=== PATIENT | male | born 1975 | race Caucasian/White ===

== ENCOUNTER 2016-07-21 00:48 | Emergency (ER) | payer SELFPAY ==
[~2016-07-21] VITALS: Ht 152.4 cm; Wt 117.3 kg
[~2016-07-21 00:48] MED LIST: HYDR-4246 PO; LISI-621 PO; NAPR500T PO; PENI250T2 PO
--- OUTSIDE RECORDS SUMMARY | 2016-07-21 00:52 | XMS REPORT | Referral Summary ---
Author Author [facility] Organization [facility] Address Unknown Phone Unavailable Care Team Providers Care Jailer/Training Officer Name Role Phone [facility] Primary Care Physician Unavailable Encounter [facility] [id number] Date(s): 05/01/16 - 05/01/16 [facility] [address] [place], [place] [address] Discharge Diagnosis: Nausea vomiting and diarrhea Discharge Diagnosis: Dehydration Discharge Disposition: 01-Home or Self Care Attending Physician: Antwon Emery DO Admitting Physician: Thor Felipe DO Vital Signs Most recent to 1 oldest [Reference Range]: Temperature Oral 37.2 degC [35.8-37.3 degC] (05/01/16 2:13 PM) Peripheral Pulse 85 bpm Rate [60-100 bpm] (05/01/16 5:02 PM) Respiratory Rate 18 br/min [14-20 br/min] (05/01/16 12:47 PM) Blood Pressure 135/70 mmHg [90-140/60-90 mmHg] (05/01/16 5:02 PM) SpO2 96 % (05/01/16 12:47 PM) Problem List Condition Effective Dates Status Health Status Informant Chronic low back Active pain(Confirmed) Head ache(Confirmed) Active patient High blood Active patient pressure(Confirmed) Allergies, Adverse Reactions, Alerts Substance Reaction Severity Status Toradol nausea Active Ultram Active Medications cyclobenzaprine 10 mg oral tablet 10 mg 1 tabs, Oral, TID, as needed for spasm, # 10 tabs, 0 Refill(s), supervising deacon Start Date: 04/03/16 Stop Date: 04/03/17 Status: Ordered ibuprofen 800 mg oral tablet 800 mg 1 tabs, Oral, q8hr, # 10 tabs, 0 Refill(s) Start Date: 12/26/15 Status: Ordered lisinopril 10 mg oral tablet 10 mg 1 tabs, Oral, Daily, # 14 tabs, 0 Refill(s) Start Date: 05/06/15 Stop Date: 05/20/15 Status: Ordered Naprosyn 500 mg oral tablet 500 mg 1 tabs, Oral, q8hr, Pain, # 15 tabs, 0 Refill(s) Start Date: 12/06/14 Status: Ordered [place] 5 mg-325 mg oral tablet 1 tabs, Oral, q6hr, as needed for pain, # 12 tabs, 0 Refill(s) Start Date: 04/03/16 Stop Date: 04/03/17 Status: Ordered predniSONE 50 mg oral tablet 50 mg 1 tabs, Oral, Daily, # 3 tabs, 0 Refill(s) Start Date: 12/26/15 Stop Date: 12/29/15 Status: Ordered Zofran ODT 4 mg oral tablet, disintegrating 4 mg 1 tabs, Oral, q8hr, as needed for nausea/vomiting, # 12 tabs, 0 Refill(s) Start Date: 05/01/16 Stop Date: 05/05/16 Status: Ordered Results Hematology Most recent to 1 oldest [Reference Range]: WBC [4.8-10.8 7.3 10*3/uL 10*3/uL] (05/01/16 1:13 PM) RBC [4.60-6.20] 5.11 (05/01/16 1:13 PM) Hgb [14.0-18.0 14.9 gm/dL gm/dL] (05/01/16 1:13 PM) Hct [42.0-52.0 %] 44.5 % (05/01/16 1:13 PM) MCV [82.0-99.0 fL] 87.1 fL (05/01/16 1:13 PM) MCH [27.0-32.0 pg] 29.2 pg (05/01/16 1:13 PM) MCHC [32.0-36.0 33.5 gm/dL gm/dL] (05/01/16 1:13 PM) RDW [11.5-14.5 %] 14.0 % (05/01/16 1:13 PM) Platelet [150-400 176 10*3/uL 10*3/uL] (05/01/16 1:13 PM) MPV [9.4-12.3 fL] 9.1 fL *LOW* (05/01/16 1:13 PM) Immature 0.3 % Granulocytes (05/01/16 1:13 PM) [0.0-1.0 %] Neutrophils [51-75 84 % %] *HI* (05/01/16 1:13 PM) Lymphocytes [20-46 11 % %] *LOW* (05/01/16 1:13 PM) Monocytes [4-11 %] 4 % (05/01/16 1:13 PM) Eosinophils [0-4 %] 1 % (05/01/16 1:13 PM) Basophils [0-2 %] 0 % (05/01/16 1:13 PM) Neutro Absolute 6.07 [1.90-7.00] (05/01/16 1:13 PM) Lymph Absolute 0.81 [0.80-3.30] (05/01/16 1:13 PM) [place] Absolute 0.31 [0.30-1.00] (05/01/16 1:13 PM) Eos Absolute 0.04 [0.00-0.50] (05/01/16 1:13 PM) Baso Absolute 0.01 [0.00-0.20] (05/01/16 1:13 PM) Nucleated RBC 0.0 /100 WBC Automated [0 /100 (05/01/16 1:13 PM) WBC] Chemistry Most recent to 1 oldest [Reference Range]: Sodium Lvl [136-144 134 mEq/L mEq/L] *LOW* (05/01/16 1:13 PM) Potassium Lvl 3.5 mEq/L [3.6-5.1 mEq/L] *LOW* (05/01/16 1:13 PM) Chloride [99-109 103 mEq/L mEq/L] (05/01/16 1:13 PM) CO2 [22-32 mEq/L] 24 mEq/L (05/01/16 1:13 PM) AGAP [3-20] 7 (05/01/16 1:13 PM) BUN [4-20 mg/dL] 15 mg/dL (05/01/16 1:13 PM) Glucose Lvl [70-100 87 mg/dL mg/dL] (05/01/16 1:13 PM) Creatinine Lvl 1.45 mg/dL [0.64-1.27 mg/dL] *HI* (05/01/16 1:13 PM) eGFR [>60] 53 1 *ABN* (05/01/16 1:13 PM) Calcium Lvl 8.4 mg/dL [8.6-10.0 mg/dL] *LOW* (05/01/16 1:13 PM) Albumin Lvl [3.5-4.8 3.5 gm/dL gm/dL] (05/01/16 1:13 PM) Total Protein 6.7 gm/dL [6.1-7.9 gm/dL] (05/01/16 1:13 PM) Globulin [1.9-4.3 3.2 gm/dL gm/dL] (05/01/16 1:13 PM) ALT [17-63 U/L] 23 U/L (05/01/16 1:13 PM) AST [15-41 U/L] 23 U/L (05/01/16 1:13 PM) Alk Phos [26-104 56 U/L U/L] (05/01/16 1:13 PM) Bili Total [0.2-1.2 2.1 mg/dL 2 mg/dL] *HI* (05/01/16 1:13 PM) Creatinine Venous 1.4 mg/dL [0.7-1.2 mg/dL] *HI* (05/01/16 4:17 PM) 1Result Comment: Multiply eGFR results by 1.21 for race. 2Result Comment: Naproxen, specifically the metabolite O-desmethylnaproxen, may cause spurious elevation in Total Bilirubin levels. Urinalysis Most recent to 1 oldest [Reference Range]: UA Color Chloe *ABN* (05/01/16 2:12 PM) UA Appear Sl Cloudy (05/01/16 2:12 PM) UA pH [5.0-8.0] 5.0 (05/01/16 2:12 PM) UA Leuk Est Negative [Negative] (05/01/16 2:12 PM) UA Nitrite Negative [Negative] (05/01/16 2:12 PM) UA Protein Pos 1+ [Negative] *ABN* (05/01/16 2:12 PM) UA Glucose Negative [Negative] (05/01/16 2:12 PM) UA Ketones Negative [Negative] (05/01/16 2:12 PM) UA Urobilinogen Negative [<1.0] (05/01/16 2:12 PM) UA Bili [Negative] Negative (05/01/16 2:12 PM) UA Blood [Negative] Pos 1+ *ABN* (05/01/16 2:12 PM) UA Spec Grav 1.030 [1.003-1.030] (05/01/16 2:12 PM) Type Clean Catch (05/01/16 2:12 PM) UA WBC [0-4] 2-5 (05/01/16 2:12 PM) UA RBC [0-2] 2-5 (05/01/16 2:12 PM) Epithelial Cells 0-2 (05/01/16 2:12 PM) UA Bacteria None Seen (05/01/16 2:12 PM) UA Mucous Present (05/01/16 2:12 PM) Immunizations No data available for this section Procedures No data available for this section Social History Social History Type Response Smoking Status Never smoker; Concerns about tobacco use in household: No Assessment and Plan No data available for this section
[2016-07-21 00:53] VITALS: Ht 152.4 cm; Wt 117.3 kg
--- OUTSIDE RECORDS SUMMARY | 2016-07-21 00:53 | XMS REPORT | Referral Summary ---
Author Author [facility] Organization [facility] Address Unknown Phone Unavailable Care Team Providers Care Senior Cost Estimator Name Role Phone [facility] Primary Care Physician Unavailable Encounter [facility] [id number] Date(s): 05/10/16 - 05/10/[address] [facility] [address] [place], [place] [address] Discharge Diagnosis: Acute exacerbation of chronic low back pain Discharge Disposition: 01-Home or Self Care Attending Physician: Thor Felipe DO Admitting Physician: Thor Felipe DO Vital Signs Most recent to 1 oldest [Reference Range]: Temperature Oral 36.8 degC [35.8-37.3 degC] (05/10/16 8:49 PM) Peripheral Pulse 67 bpm Rate [60-100 bpm] (05/10/16 9:31 PM) Respiratory Rate 16 br/min [14-20 br/min] (05/10/16 9:31 PM) Blood Pressure 159/86 mmHg [90-140/60-90 mmHg] *HI* (05/10/16 9:31 PM) SpO2 97 % (05/10/16 9:31 PM) Problem List Condition Effective Dates Status Health Status Informant Chronic low back Active pain(Confirmed) Head ache(Confirmed) Active patient High blood Active patient pressure(Confirmed) Allergies, Adverse Reactions, Alerts Substance Reaction Severity Status Toradol nausea Active Ultram Active Medications cyclobenzaprine 10 mg oral tablet 10 mg 1 tabs, Oral, TID, as needed for spasm, # 10 tabs, 0 Refill(s) Start Date: 05/10/16 Stop Date: 05/14/16 Status: Ordered cyclobenzaprine 10 mg oral tablet 10 mg [...] 0 Refill(s) Start Date: 12/06/14 Status: Ordered [place] 5 mg-325 mg oral tablet 1 tabs, [...] 05/01/16 Stop Date: 05/05/16 Status: Ordered Results No data available for this section Immunizations No data available for this section Procedures No data available for this section Social History Social History Type Response Smoking Status Never smoker; Concerns about tobacco use in household: No Assessment and Plan No data available for this section
--- OUTSIDE RECORDS SUMMARY | 2016-07-21 00:53 | XMS REPORT ---
Author Author [facility]. Organization [facility] Address [address] [place] [address] Phone [phone] Summary purpose CCDA Sent to [facility] Chief Complaint and Reason for Visit Admit Diagnosis 1 SHOULDER PAIN Problem list No authorized problems tracked for continuity of care are available for this visit. Encounters No authorized problems tracked for encounter diagnoses are available for this visit. Medications No medications recorded for this patient visit Allergies, adverse reactions, alerts Allergen Category Ingredient Status Reaction Severity Onset tramadol Drug tramadol Active Hives Adolescence Immunizations No immunizations recorded for this patient visit Relevant diagnostic tests and/or laboratory data RESULTS CBC [id number]:00 Result Normal Range Units WBC 10.34 5.8-10.8 x103/mm3 Result Amended on 2016-06-21 at 08:31:49. Previous status was FR. Neutrophil % HC 92.3 50-70 % Result Amended on 2016-06-21 at 08:31:49. Previous status was FR. REP/JUDIE BY [facility] 06/21/16 CALLED TO [facility]LE @ [facility] 06/21/16 [facility] Lymph % L 6.3 20-50 % Result Amended on 2016-06-21 at 08:31:49. Previous status was FR. [place] % 1.1 1.0-9.0 % Result Amended on 2016-06-21 at 08:31:49. Previous status was FR. Eosinophil % 0.1 0-4 % Result Amended on 2016-06-21 at 08:31:49. Previous status was FR. Basophil % 0.2 0-2 % Result Amended on 2016-06-21 at 08:31:49. Previous status was FR. Neutrophil # H 9.55 3.0-7.0 x103/mm3 Result Amended on 2016-06-21 at 08:31:49. Previous status was FR. Lymph # L 0.65 1.0-4.0 x103/mm3 Result Amended on 2016-06-21 at 08:31:49. Previous status was FR. [place] # 0.11 0.0-0.8 x103/mm3 Result Amended on 2016-06-21 at 08:31:49. Previous status was FR. Eosinophil # 0.01 0-0.5 x103/mm3 Result Amended on 2016-06-21 at 08:31:49. Previous status was FR. Basophil # 0.02 0-0.2 x103/mm3 Result Amended on 2016-06-21 at 08:31:49. Previous status was FR. RBC 5.64 4.60-6.20 x103/mm3 Result Amended on 2016-06-21 at 08:31:49. Previous status was FR. HGB 16.1 14.0-18.0 g/dl Result Amended on 2016-06-21 at 08:31:49. Previous status was FR. HCT 47.3 42.0-52.0 % Result Amended on 2016-06-21 at 08:31:49. Previous status was FR. MCV 83.9 80-94 FL Result Amended on 2016-06-21 at 08:31:49. Previous status was FR. MCH 28.5 27.0-31.0 pg Result Amended on 2016-06-21 at 08:31:50. Previous status was FR. MCHC 34.0 32.0-36.0 g/dl Result Amended on 2016-06-21 at 08:31:50. Previous status was FR. RDW 13.6 12-15 % Result Amended on 2016-06-21 at 08:31:50. Previous status was FR. Platelet 254 150-400 x103/mm3 Result Amended on 2016-06-21 at 08:31:50. Previous status was FR. MPV 8.5 6.0-10.0 FL Result Amended on 2016-06-21 at 08:31:50. Previous status was FR. Manual Differential 10:00 Result Normal Range Units Seg 91.0 Lymph 7.0 Bands 1.0 Immature Cell 1.0 Chemistry Group [id number]:00 Result Normal Range Units Sodium 140 134-145 mmol/L Potassium 4.0 3.6-5.0 mmol/L Chloride 106 98-107 mmol/L CO2 22 22-30 mmol/L Glucose H 153 75-110 mg/dl BUN 19 9-20 mg/dl Creatinine L .76 0.8-1.7 mg/dl eGFR 112 ml/min. Total Protein H 8.3 6.3-8.2 g/dl Albumin 4.3 3.5-5.0 g/dl Calcium 9.1 8.4-10.2 mg/dl Alk Phos 81 38-126 U/L AST 27 14-36 U/L ALT 25 11-66 U/L T Bili 1.3 0.2-1.3 mg/dl A/G Ratio 1.1 Ratio Coagulation Group :10:00 Result Normal Range Units Protime 9.9 9.5-12.3 Sec INR 0.9 Special Chemistry Group :10:00 Result Normal Range Units Troponin I < 0.06 ng/ml NEGATIVE - 0.06-0.30 ng/ml INCONCLUSIVE - 0.31-0.64 ng/ml; Suggest Repeating in 2-4 hours POSITIVE - >0.64 ng/ml; Probable AMI History of procedures No procedures recorded for this patient visit. Functional status Cognitive Status Finding Observation Time Level of Consciousne Alert [id number] Oriented to Person Yes [id number] Yes [id number]:15 Oriented to Time Yes [id number] Vital signs Type Value Date Respirations 16 [id number] Pulse 86 :42 O2 Saturation 96% [id number]:42 Systolic Blood Press 186mm/HG [id number]:42 Diastolic Blood Pres 123mm/HG [id number]:42 Temperature (Fahr) 98.4Degrees 20-29-313453:48 Height 65in :33 Weight 265LB [id number]:33 Social history Type Value Smoking Status NEVER SMOKER Treatment Plan No treatment plan text is available for this visit. Hospital discharge instructions No discharge instruction text is available for this visit.
--- OUTSIDE RECORDS SUMMARY | 2016-07-21 00:53 | XMS REPORT | Continuity of Care Document ---
Author Author Мария Gurrola Ruddy [facility] Мария SquiresDorene Ruddy [facility] Address Unknown Phone Unavailable Care Team Providers Care Mems Device Scientist Name Role Phone GONSALO DOWNEY M.D. Primary Care Physician [phone] Insurance Providers Guarantor Rito Perez Address [address] [place] [address] Payer Self Pay Insurance Subscriber's Name PerezRito Head Relationship 01 Self / Same As Patient Chief Complaint and Reason for Visit Chief Complaint Back Pain Reason for Visit Back pain Problems Active Problems Medical Problem Onset Date Status Headache Unknown Acute Hypertension Unknown Acute Toothache Unknown Acute Past Problems Medical Problem Onset Date Acute low back pain Unknown Ankle sprain Unknown Back pain Unknown Back pain Unknown Blister of right heel Unknown Dental caries Unknown Headache Unknown [place] Unknown Hypertension Unknown Hypertension Unknown Hypertension Unknown Hypertension Unknown Right upper quadrant pain Unknown Sacroiliitis Unknown Sprain of shoulder, right Unknown Wrist pain Unknown Medications Current Home Medications Medication Dose Units Route Directions Days Qty Instructions Start Date Diclofenac Sodium 75 Mg Tab 75 Mg Oral Every 12 Hours As Needed as needed for Pain 20 Tablet 04/21/16 Lisinopril 10 Mg Tab 20 Mg Oral Daily 12/29/13 Past Home Medications Medication Directions Ordered Status Ciprofloxacin Hcl (Cipro) 500 Mg Tab, 500 Mg Oral Twice A Day for Bactinf 05/10 Discontinued Clindamycin Hcl (Cleocin 300 Mg Po) 300 Mg Cap, 300 Mg Oral Three Times A Day for Infection 12/29/13 Discontinued Cyclobenzaprine Hcl (Flexeril 10 Mg) 10 Mg Tab, 10 Mg Oral Three Times A Day as needed for Spasm 01/26/16 Discontinued Hydrocodone-Acetaminophen (Benedict) 1 Tab Tab, 1-2 Tab Oral Q4-6H as needed for Pain 12/20/15 Discontinued Hydrocodone-Acetaminophen ([place]ened[place]) 1 Tab Tab, 1 Tab Oral Every 6 Hours As Needed as needed for 01/26/16 Discontinued Social History Social History Problem Response Recorded Date/Time Onset Date Status Smoking Status Former smoker 05/10/2016 10:47pm Not Applicable Not Applicable Query Response Start Date Stop Date Smoking Status Former smoker Hospital Discharge Instructions No hospital discharge instructions. Plan of Care Discharge Date 05/10/16 11:25pm Disposition 01 HOME, SELF-CARE Condition at Discharge Improved/Stable Instructions/Education Provided Acute Low Back Pain (ED) Prescriptions See Medication Section Referrals GONSALO DOWNEY M.D. Address: [address] [place] [address] [place], [place] [id number] Additional Instructions/Education Please follow up with your doctor in 1-2 days. Patient may take Ibuprofen 800mg with food or Acetaminophen 975mg every 4-6 hours for pain. Please call primary care doctor or return to emergency department immediately if fever, persistent/worsening pain, neurological deficits, urinary incontinence, or anything concerning. Functional Status No functional status results. Allergies, Adverse Reactions, Alerts Allergen Type Severity Reaction Status Last Updated Tramadol ([id number]) Allergy Unknown Hives Active 09/27/15 Immunizations No immunization records. Vital Signs Acute Vital Signs Vital Response Date/Time Blood Pressure 152/98 mm Hg 05/10/2016 11:23pm Blood Pressure Mean 116 mm Hg 05/10/2016 11:23pm Temperature (Fahrenheit) 97.3 degrees F (96.0 - 99.9) 05/10/2016 10:44pm Temperature (Calculated Celsius) 36.44551 degrees C 05/10/2016 10:44pm Temperature Source Oral 05/10/2016 10:44pm Pulse Pulse Rate: ED 84 bpm 05/10/2016 11:23pm Respiratory Rate 18 breaths per minute (10 - 20) 05/10/2016 11:23pm Height (Feet) 5 ft 05/10/2016 10:44pm Height (Inches) 5.0 in. 05/10/2016 10:44pm Weight (Pounds) 268.0 lbs 05/10/2016 10:44pm Height 5 ft 5 in 05/10/2016 10:44pm Weight 268 lb 05/10/2016 10:44pm Body Mass Index 44.6 kg/m^2 05/10/2016 10:44pm Results Laboratory Results Test Name Result Units Flags Reference Collection Date/Time Result Date/ Time Comments White Blood Count 9.6 K/uL 5.0-10.0 08/25/2015 3:33pm 08/25/2015 4: 13pm Red Blood Count 5.56 M/uL H 4.60-5.40 08/25/2015 3:33pm 08/25/2015 4: 13pm Hemoglobin 16.1 g/dL 14.0-18.0 08/25/2015 3:33pm 08/25/2015 4:13pm Hematocrit 46.0 % 40.0-54.0 08/25/2015 3:33pm 08/25/2015 4:13pm Mean Corpuscular Volume 82.7 fL 80.0-94.0 08/25/2015 3:33pm 08/25/2015 4:13pm Mean Corpuscular Hemoglobin 29.0 pg 26.0-33.0 08/25/2015 3:33pm 2015 4:13pm Mean Corpuscular Hemoglobin Concent 35.0 g/dL 31.0-36.0 08/25/2015 3: 33pm 08/25/2015 4:13pm Red Cell Distribution Width 13.1 % 11.5-14.5 08/25/2015 3:33pm 2015 4:13pm RDW Standard Deviation 39.3 fL 35.1-43.9 08/25/2015 3:33pm 08/25/2015 4 :13pm Platelet Count 299 K/uL 130-400 08/25/2015 3:33pm 08/25/2015 4:13pm Mean Platelet Volume 9.0 fL 7.0-11.0 08/25/2015 3:33pm 08/25/2015 4: 13pm Neutrophils (%) (Auto) 73.8 % 42.0-75.0 08/25/2015 3:33pm 08/25/2015 4: 13pm Lymphocytes (%) (Auto) 17.7 % 16.0-44.0 08/25/2015 3:33pm 08/25/2015 4: 13pm Monocytes (%) (Auto) 7.2 % 2.0-9.0 08/25/2015 3:33pm 08/25/2015 4:13pm Eosinophils (%) (Auto) 0.4 % 0-7.0 08/25/2015 3:33pm 08/25/2015 4:13pm Basophils (%) (Auto) 0.5 % 0-1 08/25/2015 3:33pm 08/25/2015 4:13pm Immature Granulocyte % (Auto) 0.4 % 0-0.5 08/25/2015 3:33pm 08/25/2015 4:13pm Nucleated Red Blood Cells % 0.0 /100WBC 0-0 08/25/2015 3:33pm 2015 4:13pm Neutrophils # (Auto) 7.1 K/uL 1.9-8.0 08/25/2015 3:33pm 08/25/2015 4: 13pm Lymphocytes # (Auto) 1.7 K/uL 0.9-5.2 08/25/2015 3:33pm 08/25/2015 4: 13pm Monocytes # (Auto) 0.7 K/uL 0.16-1.0 08/25/2015 3:33pm 08/25/2015 4: 13pm Eosinophils # (Auto) 0.0 K/uL 0-0.8 08/25/2015 3:33pm 08/25/2015 4: 13pm Basophils # (Auto) 0.1 K/uL 0-0.2 08/25/2015 3:33pm 08/25/2015 4:13pm Immature Granulocyte # (Auto) 0.04 K/uL 0-0.40 08/25/2015 3:33pm 2015 4:13pm Nucleated Red Blood Cells # 0.00 K/uL 0.0-0.012 08/25/2015 3:33pm 08/24 4:13pm Urine Color YELLOW 08/25/2015 2:50pm 08/25/2015 3:17pm Urine Appearance CLEAR 08/25/2015 2:50pm 08/25/2015 3:17pm Urine Glucose (UA) NEGATIVE NEGATIVE 08/25/2015 2:50pm 08/25/2015 3: 17pm Urine Bilirubin NEGATIVE NEGATIVE 08/25/2015 2:50pm 08/25/2015 3: 17pm Urine Ketones NEGATIVE NEGATIVE 08/25/2015 2:50pm 08/25/2015 3:17pm Urine Specific [place] >=1.030 1.005-1.030 08/25/2015 2:50pm 2015 3:17pm Urine Occult Blood 1+ H NEGATIVE 08/25/2015 2:50pm 08/25/2015 3:17pm Urine pH 6.0 4.5-8.0 08/25/2015 2:50pm 08/25/2015 3:17pm Urine Protein 1+ H NEGATIVE 08/25/2015 2:50pm 08/25/2015 3:17pm Urine Urobilinogen 0.2 E.U./dL 0.2-1.0 08/25/2015 2:50pm 08/25/2015 3: 17pm Urine Nitrate NEGATIVE NEGATIVE 08/25/2015 2:50pm 08/25/2015 3:17pm Urine Leukocyte Esterase NEGATIVE NEGATIVE 08/25/2015 2:50pm 2015 3:17pm Urine RBC 5-10 /hpf H NONE 08/25/2015 2:50pm 08/25/2015 3:24pm Urine WBC NONE /hpf NONE 08/25/2015 2:50pm 08/25/2015 3:24pm Urine Epithelial Cells RARE /lpf 08/25/2015 2:50pm 08/25/2015 3:24pm Urine Bacteria NONE /hpf NONE 08/25/2015 2:50pm 08/25/2015 3:24pm Random Glucose 96 mg/dL 65-115 08/25/2015 3:33pm 08/25/2015 4:20pm Blood Urea Nitrogen 13 mg/dL 8-25 08/25/2015 3:33pm 08/25/2015 4:20pm Creatinine 0.89 mg/dL L 0.9-1.6 08/25/2015 3:33pm 08/25/2015 4:20pm Glomerular Filtration Rate Calc 94.20 mL/min 08/25/2015 3:33pm 2015 4:20pm MULTIPLY RESULT BY 1.210 IF THE PATIENT IS -JORDANIAN Units are mL/min/1.73 m2 > 60 Normal kidney function 30-59 Moderately decreased kidney function 15-29 Severely decreased kidney function <15 End-stage kidney failure BUN/Creatinine Ratio 14.6 08/25/2015 3:33pm 08/25/2015 4:20pm Sodium Level 139 mEq/L 133-145 08/25/2015 3:33pm 08/25/2015 4:20pm Potassium Level 3.6 mEq/L 3.5-5.1 08/25/2015 3:33pm 08/25/2015 4:20pm Chloride Level 106 mEq/L 98-116 08/25/2015 3:33pm 08/25/2015 4:20pm Carbon Dioxide Level 25 mEq/L 22-34 08/25/2015 3:33pm 08/25/2015 4: 20pm Anion Gap 11.6 6-13 08/25/2015 3:33pm 08/25/2015 4:20pm Calcium Level 9.1 mg/dL 8.2-10.6 08/25/2015 3:33pm 08/25/2015 4:20pm Procedures Procedure Status Date Provider(s) THER/PROPH/DIAG INJ IV PUSH Completed 08/25/15 ANEL PENA D.O. HYDRATE IV INFUSION ADD-ON Completed 08/25/15 ANEL PENA D.O. DRAINAGE OF SKIN ABSCESS Completed 11/30/15 ISI JIN M.D. THER/PROPH/DIAG INJ SC/IM Completed 02/16/16 ANEL PENA D.O. THER/PROPH/DIAG INJ SC/IM Completed 03/18/16 YAMILET PANCHAL M.D. THER/PROPH/DIAG INJ SC/IM Completed 03/18/16 YAMILET PANCHAL M.D. THER/PROPH/DIAG INJ SC/IM Completed 03/18/16 YAMILET PANCHAL M.D. Encounters Encounter Location Arrival/Admit Date Discharge/Depart Date Attending Provider Departed Emergency Room [facility] 05/10/16 10:43pm 11:25pm ELLIE WALTERS M.D. Departed Emergency Room [facility] 04/21/16 1:42pm 2:30pm SANDRA ERICKSON M.D. Departed Emergency Room [facility] 03/18/16 9:47pm 11:42pm YAMILET PANCHAL M.D. Departed Emergency Room [facility] 02/16/16 9:31pm 10:58pm ANEL PENA D.O. Departed Emergency Room [facility] 01/26/16 12:47am 1:38am YAMILET PANCHAL M.D. Departed Emergency Room [facility] 12/20/15 8:27pm 9:29pm ISI JIN M.D. Departed Emergency Room [facility] 11/30/15 7:50pm 8:20pm ISI JIN M.D. Departed Emergency Room [facility] 11/12/15 8:13pm 10:30pm ELLIE WALTERS M.D. Departed Emergency Room [facility] 09/27/15 2:06am 2:20am YAMILET PANCHAL M.D. Departed Emergency Room [facility] 08/25/15 2:41pm 5:09pm ANEL PENA D.O. Departed Emergency Room [facility] 12/29/13 2:03am 2:34am CAM VILLARREAL M.D. Recent Diagnosis
--- OUTSIDE RECORDS SUMMARY | 2016-07-21 00:53 | XMS REPORT | Referral Summary ---
Author Author [facility] Organization [facility] Address Unknown Phone Unavailable Care Team Providers Care Adolescent Specialist Name Role Phone [facility] Primary Care Physician Unavailable Encounter [facility] [id number] Date(s): 04/18/16 - 04/18/16 [facility] [address] [place], [place] [address] Discharge Diagnosis: High blood pressure Discharge Diagnosis: Headache Discharge Disposition: 01-Home or Self Care Attending Physician: Thor Felipe DO Admitting Physician: Thor Felipe DO Vital Signs Most recent to 1 oldest [Reference Range]: Peripheral Pulse 80 bpm Rate [60-100 bpm] (04/18/16 6:02 AM) Respiratory Rate 20 br/min [14-20 br/min] (04/18/16 6:02 AM) Blood Pressure 163/116 mmHg [90-140/60-90 mmHg] *HI* (04/18/16 6:02 AM) SpO2 99 % (04/18/16 6:02 AM) Problem List Condition Effective Dates Status Health [...] 0 Refill(s) Start Date: 12/06/14 Status: Ordered Weatherby 5 mg-325 mg oral tablet 1 tabs, Oral, q6hr, as needed for pain, # 12 tabs, 0 Refill(s) Start Date: 04/03/16 Stop Date: 04/03/17 Status: Ordered predniSONE 50 mg oral tablet 50 mg 1 tabs, Oral, Daily, # 3 tabs, 0 Refill(s) Start Date: 12/26/15 Stop Date: 12/29/15 Status: Ordered Results Chemistry Most recent to 1 oldest [Reference Range]: Sodium Venous 140 mEq/L [136-144 mEq/L] (04/18/16 6:10 AM) Potassium Venous 3.7 mEq/L 1 [3.6-5.1 mEq/L] (04/18/16 6:10 AM) Calcium Ionized 1.10 mmol/L Venous [1.19-1.41 *LOW* mmol/L] (04/18/16 6:10 AM) Total CO2 Venous 19 mEq/L [25-29 mEq/L] *LOW* (04/18/16 6:10 AM) HGB Venous NPT 15.0 gm/dL [14.0-18.0 gm/dL] (04/18/16 6:10 AM) HCT Venous 44.0 % [42.0-52.0 %] (04/18/16 6:10 AM) Glucose Venous 115 mg/dL [70-100 mg/dL] *HI* (04/18/16 6:10 AM) BUN Venous [4-20] 13 (04/18/16 6:10 AM) Creatinine Venous 0.9 mg/dL [0.7-1.2 mg/dL] (04/18/16 6:10 AM) Venous CL [99-109 105 mEq/L mEq/L] (04/18/16 6:10 AM) Anion Gap, Alberto 16 [3-20] (04/18/16 6:10 AM) 1Result Comment: This test was performed on a whole blood specimen. The presence or absence of hemolysis cannot be assessed. Hemolysis can falsely elevate potassium levels. Normals are for venous specimens only. Immunizations No data available for this section Procedures No data available for this section Social History Social History Type Response Smoking Status Never smoker; Concerns about tobacco use in household: No Assessment and Plan No data available for this section
--- OUTSIDE RECORDS SUMMARY | 2016-07-21 00:53 | XMS REPORT | Referral Summary ---
Author Author [facility] Organization [facility] Address Unknown Phone Unavailable Care Team Providers Care Assistant Press Operator Name Role Phone [facility] Primary Care Physician Unavailable Encounter [facility] [id number] Date(s): 04/03/16 - 04/03/16 [facility] [address] [place], [place] [address] Discharge Diagnosis: Muscle spasm Discharge Diagnosis: Low back pain Discharge Disposition: 01-Home or Self Care Attending Physician: Abigail Zimmerman APRN Admitting Physician: Abigail Zimmerman APRN Referring Physician: Self Referred, X Vital Signs Most recent to 1 oldest [Reference Range]: Temperature Oral 36.8 degC [35.8-37.3 degC] (04/03/16 2:07 AM) Peripheral Pulse 86 bpm Rate [60-100 bpm] (04/03/16 2:07 AM) Respiratory Rate 16 br/min [14-20 br/min] (04/03/16 2:07 AM) Blood Pressure 181/132 mmHg [90-140/60-90 mmHg] *HI* (04/03/16 2:07 AM) SpO2 97 % (04/03/16 2:07 AM) Problem List Condition Effective Dates Status Health Status Informant Chronic low back Active pain(Confirmed) High blood Active patient pressure(Confirmed) Allergies, Adverse [...] 0 Refill(s) Start Date: 12/06/14 Status: Ordered Landis 5 mg-325 mg oral tablet 1 tabs, Oral, q6hr, as needed for pain, # 12 tabs, 0 Refill(s) Start Date: 04/03/16 Stop Date: 04/03/17 Status: Ordered predniSONE 50 mg oral tablet 50 mg 1 tabs, Oral, Daily, # 3 tabs, 0 Refill(s) Start Date: 12/26/15 Stop Date: 12/29/15 Status: Ordered Results No data available for this section Immunizations No data available for this section Procedures No data available for this section Social History Social History Type Response Smoking Status Never smoker; Concerns about tobacco use in household: No Assessment and Plan No data available for this section
--- OUTSIDE RECORDS SUMMARY | 2016-07-21 00:53 | XMS REPORT | Referral Summary ---
Author Author [facility] Organization [facility] Address Unknown Phone Unavailable Care Team Providers Care Internet Database Specialist Name Role Phone [facility] Primary Care Physician Unavailable Encounter [facility] [id number] Date(s): 03/13/16 - 03/14/16 [facility] [address] [place], [place] [address] Discharge Diagnosis: Left shoulder pain Discharge Diagnosis: Biceps tendinitis Discharge Diagnosis: Hypertension Final: Bicipital tendinitis, left shoulder Discharge Disposition: 01-Home or Self Care Attending Physician: Susan Millard MD Admitting Physician: Susan Millard MD Vital Signs Most recent to 1 oldest [Reference Range]: Temperature Oral 36.9 degC [35.8-37.3 degC] (03/13/16 11:37 PM) Peripheral Pulse 81 bpm Rate [60-100 bpm] (03/13/16 11:52 PM) Respiratory Rate 20 br/min [14-20 br/min] (03/13/16 11:52 PM) Blood Pressure 192/134 mmHg [90-140/60-90 mmHg] *HI* (03/13/16 11:52 PM) SpO2 98 % (03/13/16 11:52 PM) Problem List Condition Effective Dates Status Health Status Informant Chronic low back Active pain(Confirmed) High blood Active patient pressure(Confirmed) Allergies, Adverse Reactions, Alerts Substance Reaction Severity Status Toradol nausea Active Ultram Active Medications ibuprofen 800 mg oral tablet 800 mg [...] 0 Refill(s) Start Date: 12/06/14 Status: Ordered predniSONE 50 mg oral tablet [...]
--- OUTSIDE RECORDS SUMMARY | 2016-07-21 00:53 | XMS REPORT | Referral Summary ---
Author Author [facility] Organization [facility] Address Unknown Phone Unavailable Care Team Providers Care Toter Name Role Phone [facility], [facility] Primary Care Physician Unavailable Encounter [facility] [id number] Date(s): 02/22/16 - 02/22/[address] [facility] [address] [facility] [facility] [place], [place] [address] Discharge Diagnosis: Chronic pain Final: Other chronic pain Final: Low back pain Discharge Diagnosis: Acute low back pain Discharge Disposition: 01-Home or Self Care Attending Physician: Lee Ramirez MD Admitting Physician: Lee Ramirez MD Vital Signs Most recent to 1 oldest [Reference Range]: Temperature Oral 37 degC [35.8-37.3 degC] (02/22/16 7:24 AM) Peripheral Pulse 100 bpm Rate [60-100 bpm] (02/22/16 7:24 AM) Respiratory Rate 18 br/min [14-20 br/min] (02/22/16 7:24 AM) Blood Pressure 180/119 mmHg [90-140/60-90 mmHg] *HI* (02/22/16 7:24 AM) SpO2 96 % (02/22/16 7:24 AM) Problem List Condition Effective Dates Status [...]
--- OUTSIDE RECORDS SUMMARY | 2016-07-21 00:53 | XMS REPORT | Referral Summary ---
Author Author [facility] Organization [facility] Address Unknown Phone Unavailable Care Team Providers Care Cardroom Plastic Card Grader Name Role Phone [facility], [facility] Primary Care Physician Unavailable Encounter [facility] [id number] Date(s): 12/26/15 - 12/26/15 [facility] [address] [place], [place] [address] Discharge Diagnosis: Sprain of right shoulder Discharge Disposition: 01-Home or Self Care Attending Physician: Bertin Mena MD Admitting Physician: Bertin Mena MD Vital Signs Most recent to 1 oldest [Reference Range]: Temperature Oral 37.2 degC [35.8-37.3 degC] (12/26/15 5:36 PM) Peripheral Pulse 75 bpm Rate [60-100 bpm] (12/26/15 5:36 PM) Respiratory Rate 16 br/min [14-20 br/min] (12/26/15 5:36 PM) Blood Pressure 176/129 mmHg [90-140/60-90 mmHg] *HI* (12/26/15 5:36 PM) SpO2 97 % (12/26/15 5:36 PM) Problem List Condition Effective Dates Status [...]
--- OUTSIDE RECORDS SUMMARY | 2016-07-21 00:53 | XMS REPORT | Referral Summary ---
Author Author [facility] Organization [facility] Address Unknown Phone Unavailable Care Team Providers Care Septic Tank Setter Name Role Phone [facility], [facility] Primary Care Physician Unavailable Encounter [facility] [id number] Date(s): 02/03/16 - 02/03/16 [facility] [address] [place] [address] Discharge Diagnosis: Hematuria Discharge Diagnosis: Left low back pain Discharge Diagnosis: Mild diverticulitis Discharge Disposition: 01-Home or Self Care Attending Physician: Bertin Mena MD Admitting Physician: Bertin Mena MD Referring Physician: Self Referred, X Vital Signs Most recent to 1 oldest [Reference Range]: Temperature Oral 36.8 degC [35.8-37.3 degC] (02/03/16 4:47 PM) Apical Heart Rate 90 bpm [60-100 bpm] (02/03/16 8:26 PM) Peripheral Pulse 75 bpm Rate [60-100 bpm] (02/03/16 7:30 PM) Respiratory Rate 18 br/min [14-20 br/min] (02/03/16 8:26 PM) Blood Pressure 192/126 mmHg [90-140/60-90 mmHg] *HI* (02/03/16 8:26 PM) SpO2 98 % (02/03/16 8:26 PM) Problem List Condition Effective Dates Status Health Status Informant Chronic low back Active pain(Confirmed) High blood Active patient pressure(Confirmed) Allergies, Adverse Reactions, Alerts Substance Reaction Severity Status Toradol nausea Active Ultram Active Medications Cipro 500 mg oral tablet 500 mg 1 tabs, Oral, q12hr, SUP/Jesus Jim MD., X 7 days, # 14 tabs, 0 Refill (s) Start Date: 02/03/16 Stop Date: 02/10/16 Status: Ordered ibuprofen 800 mg oral tablet 800 mg 1 tabs, Oral, q8hr, # 10 tabs, 0 Refill(s) Start Date: 12/26/15 Status: Ordered lisinopril 10 mg oral tablet 10 mg 1 tabs, Oral, Daily, # 14 tabs, 0 Refill(s) Start Date: 05/06/15 Stop Date: 05/20/15 Status: Ordered metroNIDAZOLE 500 mg oral tablet 500 mg 1 tabs, Oral, q8hr, do not drink alcohol may take with food to minimize abdominal discomfort SUP/Jesus Jim MD., X 7 days, # 21 tabs, 0 Refill(s) Start Date: 02/03/16 Stop Date: 02/10/16 Status: Ordered Naprosyn 500 mg oral tablet 500 mg 1 tabs, Oral, q8hr, Pain, # 15 tabs, 0 Refill(s) Start Date: 12/06/14 Status: Ordered Atlantic 5 mg-325 mg oral tablet 1 tabs, Oral, q6hr, as needed for pain, SUP/jesus Jim MD., # 4 tabs, 0 Refill(s) Start Date: 02/03/16 Stop Date: 02/08/16 Status: Ordered predniSONE 50 mg oral tablet 50 mg 1 tabs, Oral, Daily, # 3 tabs, 0 Refill(s) Start Date: 12/26/15 Stop Date: 12/29/15 Status: Ordered Results Hematology Most recent to 1 oldest [Reference Range]: WBC [4.8-10.8 8.8 10*3/uL 10*3/uL] (02/03/16 6:49 PM) RBC [4.60-6.20] 5.41 (02/03/16 6:49 PM) Hgb [14.0-18.0 15.6 gm/dL gm/dL] (02/03/16 6:49 PM) Hct [42.0-52.0 %] 46.1 % (02/03/16 6:49 PM) MCV [82.0-99.0 fL] 85.2 fL (02/03/16 6:49 PM) MCH [27.0-32.0 pg] 28.8 pg (02/03/16 6:49 PM) MCHC [32.0-36.0 33.8 gm/dL gm/dL] (02/03/16 6:49 PM) RDW [11.5-14.5 %] 13.0 % (02/03/16 6:49 PM) Platelet [150-400 229 10*3/uL 10*3/uL] (02/03/16 6:49 PM) MPV [9.4-12.3 fL] 8.6 fL *LOW* (02/03/16 6:49 PM) Immature 0.1 % Granulocytes (02/03/16 6:49 PM) [0.0-1.0 %] Neutrophils [51-75 72 % %] (02/03/16 6:49 PM) Lymphocytes [20-46 20 % %] (02/03/16 6:49 PM) Monocytes [4-11 %] 7 % (02/03/16 6:49 PM) Eosinophils [0-4 %] 1 % (02/03/16 6:49 PM) Basophils [0-2 %] 0 % (02/03/16 6:49 PM) Neutro Absolute 6.26 10*3 [1.90-7.00 10*3] (02/03/16 6:49 PM) Lymph Absolute 1.79 10*3 [0.80-3.30 10*3] (02/03/16 6:49 PM) Montague Absolute 0.60 10*3 [0.30-1.00 10*3] (02/03/16 6:49 PM) Eos Absolute 0.08 10*3 [0.00-0.50 10*3] (02/03/16 6:49 PM) Baso Absolute 0.02 10*3 [0.00-0.20 10*3] (02/03/16 6:49 PM) Nucleated RBC 0.0 /100 WBC Automated [0 /100 (02/03/16 6:49 PM) WBC] Chemistry Most recent to 1 oldest [Reference Range]: Sodium Lvl [136-144 138 mEq/L mEq/L] (02/03/16 6:49 PM) Potassium Lvl 3.8 mEq/L [3.6-5.1 mEq/L] (02/03/16 6:49 PM) Chloride [99-109 106 mEq/L mEq/L] (02/03/16 6:49 PM) CO2 [22-32 mEq/L] 24 mEq/L (02/03/16 6:49 PM) AGAP [3-20] 8 (02/03/16 6:49 PM) BUN [4-20 mg/dL] 11 mg/dL (02/03/16 6:49 PM) Glucose Lvl [70-100 90 mg/dL mg/dL] (02/03/16 6:49 PM) Creatinine Lvl 0.99 mg/dL [0.64-1.27 mg/dL] (02/03/16 6:49 PM) eGFR [>60] >60 1 (02/03/16 6:49 PM) Calcium Lvl 9.1 mg/dL [8.6-10.0 mg/dL] (02/03/16 6:49 PM) 1Result Comment: Multiply eGFR results by 1.21 for race. Urinalysis Most recent to 1 oldest [Reference Range]: UA Color Yellow (02/03/16 5:15 PM) UA Appear Clear (02/03/16 5:15 PM) UA pH [5.0-8.0] 6.0 (02/03/16 5:15 PM) UA Leuk Est Negative [Negative] (02/03/16 5:15 PM) UA Nitrite Negative [Negative] (02/03/16 5:15 PM) UA Protein Negative [Negative] (02/03/16 5:15 PM) UA Glucose Negative [Negative] (02/03/16 5:15 PM) UA Ketones Negative [Negative] (02/03/16 5:15 PM) UA Urobilinogen Negative [<1.0] (02/03/16 5:15 PM) UA Bili [Negative] Negative (02/03/16 5:15 PM) UA Blood [Negative] Pos 1+ *ABN* (02/03/16 5:15 PM) UA Spec Grav 1.020 [1.003-1.030] (02/03/16 5:15 PM) Type Clean Catch (02/03/16 5:15 PM) UA WBC [0-4] 0-2 (02/03/16 5:15 PM) UA RBC [0-2] 5-10 *ABN* (02/03/16 5:15 PM) Epithelial Cells 0-2 (02/03/16 5:15 PM) UA Bacteria None Seen (02/03/16 5:15 PM) UA Mucous Present (02/03/16 5:15 PM) Immunizations No data available for this section Procedures No data available for this section Social History Social History Type Response Smoking Status Never smoker; Concerns about tobacco use in household: No Assessment and Plan No data available for this section
--- OUTSIDE RECORDS SUMMARY | 2016-07-21 00:54 | XMS REPORT | Continuity of Care Document ---
Author Author Мария Fox [facility] Марияtanner Fox [facility] Address Unknown Phone Unavailable Care Team Providers Care Care Management Specialist Name Role Phone GONSALO DOWNEY M.D. Primary Care Physician [phone] Insurance Providers Guarantor Rito Perez Address [address] [place] [address] Payer Self Pay Insurance Subscriber's Name Marcio Perezmala Head Relationship 01 Self / Same As Patient Chief Complaint and Reason for Visit Chief Complaint Abdominal Pain Reason for Visit Abdominal pain Hypertension Problems Active Problems Medical Problem Onset Date Status Abdominal pain Unknown Acute Headache Unknown Acute Hypertension Unknown Acute Toothache [...] Route Directions Days Qty Instructions Start Date Lisinopril 10 Mg Tab 20 Mg Oral [...] as needed for Spasm 01/26/16 Discontinued Hydrocodone-Acetaminophen (Diana) 1 Tab Tab, 1-2 Tab Oral Q4-6H as needed for Pain 12/20/15 Discontinued Hydrocodone-Acetaminophen (Diana) 1 Tab Tab, 1 Tab Oral Every 6 Hours As Needed as needed for 01/26/16 Discontinued Social History Social History Problem Response Recorded Date/Time Onset Date Status Smoking Status Never smoker 07/20/2016 8:31pm Not Applicable Not Applicable Query Response Start Date Stop Date Smoking Status Never smoker Hospital Discharge Instructions No hospital discharge instructions. Plan of Care Discharge Date 07/20/16 11:50pm Disposition 01 HOME, SELF-CARE Condition at Discharge Stable Instructions/Education Provided Abdominal Pain (ED) Prescriptions See Medication Section Referrals GONSALO DOWNEY M.D. Address: [address] [place] [address] [place] [id number] Additional Instructions/Education follow up with your doctor tomorrow. Functional Status No functional status results. Allergies, Adverse Reactions, Alerts Allergen Type Severity Reaction Status Last Updated Tramadol ([id number]) Allergy Unknown Hives Active 09/27/15 Immunizations No immunization records. Vital Signs Acute Vital Signs Vital Response Date/Time Blood Pressure 170/94 mm Hg 07/20/2016 11:24pm Blood Pressure Mean 119 mm Hg 07/20/2016 11:24pm Temperature (Fahrenheit) 98.6 degrees F (96.0 - 99.9) 07/20/2016 8:22pm Temperature (Calculated Celsius) 37.99863 degrees C 07/20/2016 8:22pm Temperature Source Oral 07/20/2016 8:22pm Pulse Pulse Rate: ED 113 bpm 07/20/2016 11:24pm Respiratory Rate 18 breaths per minute (10 - 20) 07/20/2016 11:24pm Height (Feet) 5 ft 07/20/2016 8:22pm Height (Inches) 5.0 in. 07/20/2016 8:22pm Weight (Pounds) 270.0 lbs 07/20/2016 8:22pm Height 5 ft 5 in 07/20/2016 8:22pm Weight 270 lb 07/20/2016 8:22pm Body Mass Index 44.9 kg/m^2 07/20/2016 8:22pm Results Laboratory Results Test Name Result Units Flags Reference Collection Date/Time Result Date/ Time Comments White Blood Count 10.7 K/uL H 5.0-10.0 07/20/2016 8:36pm 07/20/2016 9: 12pm Red Blood Count 5.57 M/uL H 4.60-5.40 07/20/2016 8:36pm 07/20/2016 9: 12pm Hemoglobin 16.0 g/dL 14.0-18.0 07/20/2016 8:36pm 07/20/2016 9:12pm Hematocrit 45.9 % 40.0-54.0 07/20/2016 8:3607/20/2016 9:12pm Mean Corpuscular Volume 82.4 fL 80.0-94.0 07/20/2016 8:07/20/2016 9:12pm Mean Corpuscular Hemoglobin 28.7 pg 26.0-33.0 07/20/2016 8:2016 9:12pm Mean Corpuscular Hemoglobin Concent 34.9 g/dL 31.0-36.0 07/20/2016 8: 3607/20/2016 9:12pm Red Cell Distribution Width 13.2 % 11.5-14.5 07/20/2016 8:2016 9:12pm RDW Standard Deviation 39.5 fL 35.1-43.9 07/20/2016 8:07/20/2016 9 :12pm Platelet Count 260 K/uL 130-400 07/20/2016 8:07/20/2016 9:12pm Mean Platelet Volume 8.8 fL 7.0-11.0 07/20/2016 8:07/20/2016 9: 12pm Neutrophils (%) (Auto) 74.1 % 42.0-75.0 07/20/2016 8:07/20/2016 9: 12pm Lymphocytes (%) (Auto) 17.7 % 16.0-44.0 07/20/2016 8:07/20/2016 9: 12pm Monocytes (%) (Auto) 6.9 % 2.0-9.0 07/20/2016 8:07/20/2016 9:12pm Eosinophils (%) (Auto) 0.6 % 0-7.0 07/20/2016 8:07/20/2016 9:12pm Basophils (%) (Auto) 0.4 % 0-1 07/20/2016 8:36pm 07/20/2016 9:12pm Immature Granulocyte % (Auto) 0.3 % 0-0.5 07/20/2016 8:36pm 07/20/2016 9:12pm Nucleated Red Blood Cells % 0.0 /100WBC 0-0 07/20/2016 8:36pm 2016 9:12pm Neutrophils # (Auto) 7.9 K/uL 1.9-8.0 07/20/2016 8:36pm 07/20/2016 9: 12pm Lymphocytes # (Auto) 1.9 K/uL 0.9-5.2 07/20/2016 8:3607/20/2016 9: 12pm Monocytes # (Auto) 0.7 K/uL 0.16-1.0 07/20/2016 8:36pm 07/20/2016 9: 12pm Eosinophils # (Auto) 0.1 K/uL 0-0.8 07/20/2016 8:3607/20/2016 9: 12pm Basophils # (Auto) 0.0 K/uL 0-0.2 07/20/2016 8:3607/20/2016 9:12pm Immature Granulocyte # (Auto) 0.03 K/uL 0-0.40 07/20/2016 8:36pm 2016 9:12pm Nucleated Red Blood Cells # 0.00 K/uL 0.0-0.012 07/20/2016 8:36pm 07/20 9:12pm Urine Color YELLOW 07/20/2016 8:36pm 07/20/2016 9:13pm Urine Appearance CLEAR 07/20/2016 8:36pm 07/20/2016 9:13pm Urine Glucose (UA) NEGATIVE NEGATIVE 07/20/2016 8:36pm 07/20/2016 9: 13pm Urine Bilirubin NEGATIVE NEGATIVE 07/20/2016 8:36pm 07/20/2016 9: 13pm Urine Ketones NEGATIVE NEGATIVE 07/20/2016 8:36pm 07/20/2016 9:13pm Urine Specific Henderson 1.020 1.005-1.030 07/20/2016 8:36pm 2016 9:13pm Urine Occult Blood 1+ H NEGATIVE 07/20/2016 8:3607/20/2016 9:13pm Urine pH 6.0 4.5-8.0 07/20/2016 8:3607/20/2016 9:13pm Urine Protein NEGATIVE NEGATIVE 07/20/2016 8:3607/20/2016 9:13pm Urine Urobilinogen 0.2 E.U./dL 0.2-1.0 07/20/2016 8:36pm 07/20/2016 9: 13pm Urine Nitrate NEGATIVE NEGATIVE 07/20/2016 8:3607/20/2016 9:13pm Urine Leukocyte Esterase NEGATIVE NEGATIVE 07/20/2016 8:362016 9:13pm Urine RBC 1-3 /hpf H NONE 07/20/2016 8:3607/20/2016 9:24pm Urine WBC 0-1 /hpf NONE 07/20/2016 8:36pm 07/20/2016 9:24pm Urine Epithelial Cells 1-3 /lpf 07/20/2016 8:3607/20/2016 9:24pm Urine Bacteria NONE /hpf NONE 07/20/2016 8:36pm 07/20/2016 9:24pm Random Glucose 102 mg/dL 65-115 07/20/2016 8:36pm 07/20/2016 9:22pm Blood Urea Nitrogen 12 mg/dL 8-25 07/20/2016 8:36pm 07/20/2016 9:22pm Creatinine 0.95 mg/dL 0.9-1.6 07/20/2016 8:3607/20/2016 9:22pm Glomerular Filtration Rate Calc 86.94 mL/min 07/20/2016 8:362016 9:22pm MULTIPLY RESULT BY 1.210 IF THE PATIENT IS -NIGERIEN Units are mL/min/1.73 m2 > 60 Normal kidney function 30-59 Moderately decreased kidney function 15-29 Severely decreased kidney function <15 End-stage kidney failure BUN/Creatinine Ratio 12.6 07/20/2016 8:36pm 07/20/2016 9:22pm Sodium Level 139 mEq/L 133-145 07/20/2016 8:3607/20/2016 9:22pm Potassium Level 3.5 mEq/L 3.5-5.1 07/20/2016 8:3607/20/2016 9:22pm Chloride Level 103 mEq/L 98-116 07/20/2016 8:36pm 07/20/2016 9:22pm Carbon Dioxide Level 27 mEq/L 22-34 07/20/2016 8:36pm 07/20/2016 9: 22pm Anion Gap 12.5 6-13 07/20/2016 8:36pm 07/20/2016 9:22pm Calcium Level 9.2 mg/dL 8.2-10.6 07/20/2016 8:36pm 07/20/2016 9:22pm Total Protein 7.8 gm/dL 6.0-8.4 07/20/2016 8:36pm 07/20/2016 9:22pm Albumin 4.0 gm/dL 3.2-5.0 07/20/2016 8:36pm 07/20/2016 9:22pm Globulin 3.8 gm/dL H 2.0-3.0 07/20/2016 8:36pm 07/20/2016 9:22pm Albumin/Globulin Ratio 1.1 L 1.4-2.4 07/20/2016 8:36pm 07/20/2016 9: 22pm Total Bilirubin 1.2 mg/dL 0.1-1.3 07/20/2016 8:36pm 07/20/2016 9:22pm Alkaline Phosphatase 66 U/L 35-125 07/20/2016 8:36pm 07/20/2016 9:22pm Aspartate Amino Transf (AST/SGOT) 19 U/L 5-40 07/20/2016 8:36pm 2016 9:22pm Alanine Aminotransferase (ALT/SGPT) 23 U/L 5-40 07/20/2016 8:36pm 07/20 9:22pm Lipase 27 U/L 8-57 07/20/2016 8:36pm 07/20/2016 9:22pm Procedures Procedure Status Date Provider(s) THER/PROPH/DIAG INJ IV PUSH Completed 08/25/15 ANEL PENAODorene HYDRATE IV INFUSION ADD-ON Completed 08/25/15 ANEL PENAODorene DRAINAGE OF SKIN ABSCESS Completed 11/30/15 ISI JIN M.D. THER/PROPH/DIAG INJ SC/IM Completed 02/16/16 ANEL PENA D.O. THER/PROPH/DIAG INJ SC/IM Completed 03/18/16 YAMILET PANCHAL M.D. THER/PROPH/DIAG INJ SC/IM Completed 03/18/16 YAMILET PANCHAL M.D. THER/PROPH/DIAG INJ SC/IM Completed 03/18/16 YAMILET PANCHAL M.D. INJ TRIGGER POINT 1/2 MUSCL Completed 05/10/16 ELLIE WALTERS M.D. Encounters Encounter Location Arrival/Admit Date Discharge/Depart Date Attending Provider Departed Emergency Room [facility] 07/20/16 8:21pm 11:50pm NAN SANDS M.D. Departed Emergency Room [facility] 05/10/16 10:43pm 11:25pm ELLIE WALTERS M.D. Departed Emergency Room [facility] 04/21/16 1:42pm 2:30pm SANDRA ERICKSON M.D. Departed Emergency Room [facility] 03/18/16 9:47pm 11:42pm YAMILET PANCHAL M.D. Departed Emergency Room [facility] 02/16/16 9:31pm 10:58pm ANEL PENA D.O. Departed Emergency Room [facility] 01/26/16 12:47am 1:38am YAMILET PANCHAL M.D. Departed Emergency Room [facility] 12/20/15 8:27pm 9:29pm ISI JIN M.D. Departed Emergency Room [facility] 11/30/15 7:50pm 8:20pm ISI JIN M.D. Departed Emergency Room [facility] 11/12/15 8:13pm 10:30pm ELLIE WALTERS M.D. Departed Emergency Room [facility] 09/27/15 2:06am 2:20am YAMILET PANCHAL M.D. Departed Emergency Room [facility] 08/25/15 2:41pm 5:09pm ANEL PENA D.O. Departed Emergency Room [facility] 12/29/13 2:03am 2:34am CAM VILLARREAL M.D. Recent Diagnosis
--- OUTSIDE RECORDS SUMMARY | 2016-07-21 00:54 | XMS REPORT | Continuity of Care Document ---
Author Author [facility] Organization [facility] Address Unknown Phone Unavailable Allergies Active Description Code Type Severity Reaction Onset Reported/Identified Relationship to Patient Clinical Status Yes No Allergy Information Drug Allergy N/A N/A 03/20/2012 Yes No Known Allergies No Known Allergies Drug Allergy Unknown N/A 12/19/2013 Yes Ultram NKMA N/A N/A 12/31/2013 Yes Toradol NKMA N/A nausea 12/05/2014 Yes tramadol tramadol Drug Allergy Unknown UNKNOWN 09/16/2015 Yes tramadol tramadol Drug Allergy Unknown UNKNOWN 09/16/2015 Yes tramadol tramadol Drug Allergy Unknown VOMIT 03/02/2016 Yes tramadol tramadol Drug Allergy Unknown VOMIT, HIVES AND STUFF 03/13/2016 Yes tramadol tramadol Drug Allergy Unknown VOMIT, HIVES AND STUFF 03/13/2016 Medications Medication Packaging Start Date Stop Date Route Dosage Sig traMADol(Ultram 50 mg oral tablet) 1 tabs 12/19/20132013 Oral 50 mg 1 tabs, Oral, q12hr, 30 tabs, PRN: as needed for pain meperidine(meperidine) 12/31/2013 12/31/2013 IntraMuscular 50 mg 50 mg, IntraMuscular, Once ketorolac(ketorolac) 12/31/2013 12/31/2013 IntraMuscular 60 mg 60 mg, IntraMuscular, Once triamcinolone(triamcinolone acetonide 40 mg/mL injectable suspension) 201312/31/2013 IntraMuscular 60 mg 60 mg, IntraMuscular, Once HYDROcodone-acetaminophen([place] 7.5 mg-325 mg oral tablet) 1 tabs 12/31/2013 12/31/2013 Oral 1 tabs, Oral, q6hr, 30 tabs, PRN: as needed for pain cyclobenzaprine(cyclobenzaprine 10 mg oral tablet) 1 tabs 12/31/2013 01/10/2014 Oral 10 mg 1 tabs, Oral, Bedtime (once a day), 10 tabs, PRN: as needed for spasm predniSONE(predniSONE 20 mg oral tablet) 2 tabs 12/31/2013 Oral 40 mg 2 tabs, Oral, Daily, 20 tabs HYDROcodone-acetaminophen([place] 7.5 mg-325 mg oral tablet) 1 tabs 12/31/2013 01/10/2014 Oral 1 tabs, Oral, q6hr, 30 tabs, PRN: as needed for pain cloNIDine(cloNIDine) 1 tabs 12/05/2014 12/05/2014 Oral 0.1 mg 0.1 mg=1 tabs, Oral, Once cyclobenzaprine(cyclobenzaprine 10 mg oral tablet) 1 tabs 12/06/2014 2014 Oral 10 mg 10 mg=1 tabs, Oral, TID, PRN: as needed for spasm, 15 tabs, 0 Refill(s) naproxen(Naprosyn 500 mg oral tablet) 1 tabs 12/06/2014 Oral 500 mg 500 mg=1 tabs, Oral, q8hr, PRN: Pain, 15 tabs, 0 Refill(s) ondansetron(Zofran) 2 mL 05/06/2015 05/06/2015 IV Push 4 mg 4 mg= 2 mL, IV Push, q30min, PRN: Nausea or Vomiting acetaminophen(acetaminophen) 2 tabs 05/06/2015 05/06/2015 Oral 1,000 mg 1,000 mg=2 tabs, Oral, Once, PRN: Headache labetalol(labetalol) 2 mL 05/06/2015 05/06/2015 IV Push 10 mg 10 mg=2 mL, IV Push, Once Sodium Chloride 0.9%(Sodium Chloride 0.9% Bolus) 1,000 mL 05/06/2015 05/06/2015 Bolus IV 1,000 mL, Bolus IV, Once morphine(morphine) 2 mL 05/06/2015 05/06/2015 IV Push 4 mg 4 mg= 2 mL, IV Push, Once lisinopril(lisinopril) 1 tabs 05/06/2015 05/06/2015 Oral 10 mg 10 mg=1 tabs, Oral, Once acetaminophen-codeine(acetaminophen-codeine 300 mg-30 mg oral tablet) 1 tabs 02/201605/09/2015 Oral 1 tabs, Oral, q6hr, for 3 days, PRN: as needed for pain, 12 tabs, 0 Refill(s) lisinopril(lisinopril 10 mg oral tablet) 1 tabs 05/06/2015 Oral 10 mg 10 mg=1 tabs, Oral, Daily, for 14 days, 14 tabs, 0 Refill(s) penicillin V potassium(penicillin V potassium 500 mg oral tablet) 1 tabs 201509/15/2015 Oral 500 mg 500 mg=1 tabs, Oral, QID, for 14 days, 56 tabs, 0 Refill(s) HYDROcodone-acetaminophen(Mont[place] 7.5 mg-325 mg oral tablet) 1 tabs 10/16/2015 10/16/2015 Oral 1 tabs, Oral, Once cloNIDine(cloNIDine) 2 tabs 10/16/2015 10/16/2015 Oral 0.2 mg 0.2 mg=2 tabs, Oral, Once HYDROcodone-acetaminophen([place] 5 mg-325 mg oral tablet) 1 tabs 10/16/2015 10/18/2015 Oral 1 tabs, Oral, q6hr, for 2 days, PRN: as needed for pain, 8 tabs, 0 Refill(s) metroNIDAZOLE(metroNIDAZOLE 500 mg oral tablet) 1 tabs 02/03/2016 02/10/2016 Oral 500 mg 500 mg=1 tabs, Oral, q8hr, for 7 days, do not drink alcohol may take with food to minimize abdominal discomfort SHARMIN/Jesus Jim MD., 21 tabs, 0 Refill(s) ciprofloxacin(Cipro 500 mg oral tablet) 1 tabs 02/03/201602/09 Oral 500 mg 500 mg=1 tabs, Oral, q12hr, for 7 days, SUP/Jesus Jim MD., 14 tabs, 0 Refill(s) HYDROcodone-acetaminophen([place] 5 mg-325 mg oral tablet) 1 tabs 02/03/2016 02/08/2016 Oral 1 tabs, Oral, q6hr, SHARMIN/jesus Jim MD., PRN: as needed for pain, 4 tabs, 0 Refill(s) morphine(morphine 4 mg/mL syringe 1 mL) 1 mL 02/03/20162015 IV Push 4 mg 4 mg=1 mL, IV Push, Once HYDROmorphone(Dilaudid) 0.5 mL 02/22/2016 02/22/2016 IntraMuscular 0.5 mg 0.5 mg=0.5 mL, IntraMuscular, Once HYDROcodone-acetaminophen(HYDROcodone-acetaminophen 5 mg- 325 mg oral tablet) 1 tabs 03/14/2016 03/15/2016 Oral 1 tabs, Oral, q6hr, PRN: Pain Moderate (4-6), 6 tabs, 0 Refill(s) ibuprofen(ibuprofen 800 mg oral tablet) 1 tabs 03/14/201603/15 Oral 800 mg 800 mg=1 tabs, Oral, TID, PRN: Pain, 15 tabs, 0 Refill(s) HYDROcodone-acetaminophen([place] 5 mg-325 mg oral tablet) 1 tabs 04/03/2016 04/03/2017 Oral 1 tabs, Oral, q6hr, PRN: as needed for pain, 12 tabs, 0 Refill(s) cyclobenzaprine(cyclobenzaprine 10 mg oral tablet) 1 tabs 04/03/2016 04/03/2017 Oral 10 mg 10 mg=1 tabs, Oral, TID, PRN: as needed for spasm, 10 tabs, 0 Refill(s) ondansetron(ondansetron) 2 mL 05/01/2016 05/01/2016 IV Push 4 mg 4 mg=2 mL, IV Push, Once diphenhydrAMINE(Benadryl) 0.5 mL 05/01/2016 05/01/2016 IV Push 25 mg 25 mg=0.5 mL, IV Push, Once acetaminophen(acetaminophen) 2 tabs 05/01/2016 05/01/2016 Oral 1,000 mg 1,000 mg=2 tabs, Oral, Once ondansetron(Zofran ODT 4 mg oral tablet, disintegrating) 1 tabs 05/01/2016 05/05/2016 Oral 4 mg 4 mg=1 tabs, Oral, q8hr, for 4 days, PRN: as needed for nausea/vomiting, 12 tabs, 0 Refill(s) cyclobenzaprine(cyclobenzaprine 10 mg oral tablet) 1 tabs 05/10/2016 05/14/2016 Oral 10 mg 10 mg=1 tabs, Oral, TID, PRN: as needed for spasm, 10 tabs, 0 Refill(s) acetaminophen(acetaminophen) 2 tabs 05/31/2016 05/31/2016 Oral 1,000 mg 1,000 mg=2 tabs, Oral, Once ondansetron(Zofran) 2 mL 06/04/2016 IV Push 4 mg 4 mg=2 mL, IV Push, q30min, PRN: Nausea or Vomiting sulfamethoxazole-trimethoprim(Bactrim DS 800 mg-160 mg oral tablet) 1 tabs 06/11/2016 Oral 1 tabs, Oral, BID, for 7 days, 14 tabs, 0 Refill(s) lisinopril(lisinopril) 1 tabs 07/12/2016 07/12/2016 Oral 20 mg 20 mg=1 tabs, Oral, Once ondansetron(Zofran) 2 mL 07/12/2016 07/12/2016 IV Push 4 mg 4 mg= 2 mL, IV Push, Once HYDROmorphone(HYDROmorphone) 1 mL 07/12/2016 07/12/2016 IV Push 1 mg 1 mg=1 mL, IV Push, Once HYDROcodone-acetaminophen(HYDROcodone-acetaminophen 5 mg- 325 mg oral tablet) 1 tabs 07/12/2016 Oral 1 tabs, Oral, QID, PRN: Pain Moderate ( 4-6), 6 tabs, 0 Refill(s) Problems Date Dx Coded Attending Type Code Diagnosis Diagnosed By 07/19/2013 Del Sands MD Final 338.19 ACUTE PAIN NEC 07/19/2013 Del Sands MD Final 521.00 DENTAL CARIES NOS 07/19/2013 Del Sands MD Admitting 525.9 DENTAL DISORDER NOS 07/19/2013 Del Sands MD 784.0 HEADACHE 12/06/2014 Solo Garner Final 338.29 Other chronic pain 12/06/2014 Solo Garner Final 401.9 UNSPECIFIED ESSENTIAL HYPERTENSION 12/06/2014 Solo Garner Reason 724.2 LUMBAGO 05/11/2015 Pedro Silva Final E87.6 Hypokalemia 05/11/2015 Pedro Silva Edmundo Final I10 Essential (primary) hypertension 05/11/2015 Silva, F Delfin Reason M25.511 Pain in right shoulder 09/08/2015 Jim Howard Final K02.9 Dental caries, unspecified 09/08/2015 Jim Howard Reason K08.8 Other specified disorders of teeth and supporting structures 10/24/2015 Bertin Mena Final I10 Essential (primary) hypertension 10/24/2015 Bertin Mena Final K02.9 Dental caries, unspecified 10/24/2015 Bertin Mena Reason K08.8 Other specified disorders of teeth and supporting structures 10/24/2015 Bertin Mena Final S02.5XXA Fracture of tooth (traumatic), initial encounter for closed fracture 10/24/2015 Bertin Mena Final X58.XXXA Exposure to other specified factors, initial encounter 12/28/2015 Bertin Mena Reason M25.511 Pain in right shoulder 12/28/2015 Bertin Mena Final S43.401A Unspecified sprain of right shoulder joint, initial encounter 12/28/2015 Bertin Mena Final W23.1XXA Caught, crushed, jammed, or pinched between stationary objects, initial enc 12/28/2015 Bertin Mena Final Y93.E9 Activity, other interior property and clothing maintenance 02/07/2016 Bertin Mena Final K57.32 Diverticulitis of large intestine without perforation or abscess without bl 02/07/2016 Bertin Mena Reason M54.5 Low back pain 02/07/2016 Bertin Mena Final R31.9 Hematuria, unspecified 02/22/2016 Ramirez Mark Final G89.29 Other chronic pain 02/22/2016 Ramirez Mark Reason M54.5 Low back pain 03/14/2016 Millard Denise Reason M25.512 Pain in left shoulder 03/14/2016 Millard Denise Final M75.22 Bicipital tendinitis, left shoulder 04/05/2016 Abigail Zimmerman Reason M54.5 Low back pain 04/05/2016 Abigail Zimmerman Final M62.830 Muscle spasm of back 04/19/2016 Felipe Jacob Final R03.0 Elevated blood-pressure reading, without diagnosis of hypertension 04/19/2016 Felipe Jacob Reason R51 Headache 05/03/2016 Antwon Emery Final E86.0 Dehydration 05/03/2016 Antwon Emery Final I10 Essential (primary) hypertension 05/03/2016 Antwon Emery Reason R11.2 Nausea with vomiting, unspecified 05/03/2016 Antwon Emery Final R19.7 Diarrhea, unspecified 05/03/2016 Antwon Emery Final Z79.899 Other continuous churn buttermaker (current) drug therapy 05/11/2016 Felipe Jacob Final G89.29 Other chronic pain 05/11/2016 Felipe Jacob Final I10 Essential (primary) hypertension 05/11/2016 Felipe Jacob Reason M54.5 Low back pain 05/11/2016 Felipe Jacob Final X50.0XXA Overexertion from strenuous movement or load, initial encounter 05/11/2016 Felipe Jacob Final Y92.[address] in unspecified non- institutional (private) residence as t 05/31/2016 Felipe Jacob Reason M79.661 Pain in right lower leg 05/31/2016 Felipe Jacob Final S70.311A Abrasion, right thigh, initial encounter 05/31/2016 Felipe Jacob Final W10.9XXA Fall (on) (from) unspecified stairs and steps, initial encounter 06/04/2016 Fouzia Og Final I10 Essential (primary) hypertension 06/04/2016 Fouzia Og Reason R10.31 Right lower quadrant pain 06/04/2016 Fouzia Og Final R31.9 Hematuria, unspecified 06/04/2016 Fouzia Og Final Z79.52 skilled nursing (current) use of systemic steroids 06/04/2016 Fouzia Og Final Z79.899 Other continuous churn buttermaker (current) drug therapy 06/22/2016 Ramirez Mark Final I10 Essential (primary) hypertension 06/22/2016 Ramirez Mark Reason R10.11 Right upper quadrant pain 07/13/2016 Gutierrez Maged Final I10 Essential (primary) hypertension 07/13/2016 Gutierrez Maged Reason R10.11 Right upper quadrant pain 07/13/2016 Gutierrez Maged Final Z79.899 Other continuous churn buttermaker (current) drug therapy Procedures Results Test Result Range URINALYSIS, ROUTINE - 08/29/15 21:52 UA LEUKOCYTE ESTERASE DIPSTICK NEGATIVE NEGATIVE UA NITRITE DIPSTICK NEGATIVE NEGATIVE UA PROTEIN DIPSTICK NEGATIVE NEGATIVE UA GLUCOSE DIPSTICK NEGATIVE NEGATIVE UA KETONE DIPSTICK NEGATIVE NEGATIVE UA UROBILINOGEN DIPSTICK NORMAL NORMAL UA BILIRUBIN DIPSTICK NEGATIVE NEGATIVE UA BLOOD DIPSTICK 1+ NEGATIVE UA SPECIFIC GRAVITY 1.025 1.015-1.025 UR PH 5.0 5.0-7.0 UA MICROSCOPIC - 08/29/15 21:52 UA EPITHELIAL CELLS 2+ epi/hpf 0 - 1+ UA MUCUS 2+ NEG TO 1+ UA RBC 0-3 rbc/hpf 0 - 3 UA VOLUME FOR EXAM 12.0 mL (12mL STD) UA WBC 0-1 wbc/hpf 0 - 5 CHLAMYDIA DNA BY PCR - 08/29/15 21:52 Microbiology CBC W/DIFF - 08/29/15 22:19 EOSINOPHIL # 0.1 k/cumm 0.1-0.5 EOSINOPHIL % 1 % 2-4 GRANULOCYTE # 7.9 k/cumm 2.0-9.0 GRANULOCYTE % 74 % 50-75 LYMPHOCYTE # 1.9 k/cumm 1.0-4.0 LYMPHOCYTE % 18 % 20-30 MEAN CELL HGB 29.4 pg 27.0-33.0 MEAN CELL HGB CONCENTRATION 35.3 g/dL 32.0-37.0 MEAN CELL VOLUME 83.3 fl 80.0-100.0 MONOCYTE # 0.7 k/cumm 0.1-1.0 MONOCYTE % 7 % 4-6 RED BLOOD CELL 5.58 m/cumm 4.00-6.00 RED CELL DISTRIBUTION WIDTH 13.5 % 11.0- 15.6 WHITE BLOOD CELL 10.6 k/cumm 5.0-10.0 HEMOGLOBIN 16.4 gm/dL 14.0-18.0 HEMATOCRIT 46.5 % 40.0-54.0 PLATELET COUNT 257 k/cumm 150-400 CHEM/HEM PROFILE-BEDSIDE - 08/29/15 22:23 POTASSIUM 3.3 mmol/L 3.5-5.3 METHOD Bedside ANION GAP 17 mmol/L 10-20 METHOD Bedside GLUCOSE 115 mg/dL 70-99 BLOOD UREA NITROGEN 11 mg/dL 7-20 CREATININE 1.0 mg/dL 0.7-1.3 HEMOGLOBIN 15.6 gm/dL 14.0-18.0 HEMATOCRIT 46.0 % 40.0-54.0 SODIUM 142 mmol/L 135-148 CHLORIDE 104 mmol/L 98-110 CARBON DIOXIDE 25 mmol/L 21-32 CALCIUM IONIZED 4.8 mg/dL 4.5-5.3 CHEM/HEM PROFILE-BEDSIDE - 03/02/16 16:45 POTASSIUM 3.7 mmol/L 3.5-5.3 METHOD Bedside ANION GAP 18 mmol/L 10-20 METHOD Bedside GLUCOSE 99 mg/dL 70-99 BLOOD UREA NITROGEN 11 mg/dL 7-20 CREATININE 0.9 mg/dL 0.7-1.3 HEMOGLOBIN 15.6 gm/dL 14.0-18.0 HEMATOCRIT 46.0 % 40.0-54.0 SODIUM 140 mmol/L 135-148 CHLORIDE 103 mmol/L 98-110 CARBON DIOXIDE 23 mmol/L 21-32 CALCIUM IONIZED 4.6 mg/dL 4.5-5.3 TROPONIN I BEDSIDE - 03/02/16 16:47 METHOD Bedside TROPONIN I < 0.04 ng/mL < 0.11 CBC W/DIFF - 03/02/16 16:52 EOSINOPHIL # 0.1 k/cumm 0.1-0.5 EOSINOPHIL % 1 % 2-4 GRANULOCYTE # 7.3 k/cumm 2.0-9.0 GRANULOCYTE % 72 % 50-75 LYMPHOCYTE # 1.9 k/cumm 1.0-4.0 LYMPHOCYTE % 19 % 20-30 MEAN CELL HGB 28.2 pg 27.0-33.0 MEAN CELL HGB CONCENTRATION 34.1 g/dL 32.0-37.0 MEAN CELL VOLUME 82.9 fl 80.0-100.0 MONOCYTE # 0.8 k/cumm 0.1-1.0 MONOCYTE % 8 % 4-6 RED BLOOD CELL 5.56 m/cumm 4.00-6.00 RED CELL DISTRIBUTION WIDTH 13.3 % 11.0- 15.6 WHITE BLOOD CELL 10.1 k/cumm 5.0-10.0 HEMOGLOBIN 15.7 gm/dL 14.0-18.0 HEMATOCRIT 46.1 % 40.0-54.0 PLATELET COUNT 261 k/cumm 150-400 GONORRHOEA DNA BY PCR - CHLAMYDIA DNA BY PCR - 07/05/16 16:30 Microbiology CHLAMYDIA DNA BY PCR - 07/05/16 16:30 Microbiology URINALYSIS, ROUTINE - 07/05/16 16:30 UA LEUKOCYTE ESTERASE DIPSTICK NEGATIVE NEGATIVE UA NITRITE DIPSTICK NEGATIVE NEGATIVE UA PROTEIN DIPSTICK 1+ NEGATIVE UA GLUCOSE DIPSTICK TRACE NEGATIVE UA KETONE DIPSTICK NEGATIVE NEGATIVE UA UROBILINOGEN DIPSTICK NORMAL NORMAL UA BILIRUBIN DIPSTICK NEGATIVE NEGATIVE UA BLOOD DIPSTICK TRACE NEGATIVE UA SPECIFIC GRAVITY 1.025 1.015-1.025 UR PH 7.0 5.0-7.0 UA MICROSCOPIC - 07/05/16 16:30 UA AMORPHOUS SEDIMENT 1+ UA BACTERIA 1+ NEGATIVE UA EPITHELIAL CELLS 1+ epi/hpf 0 - 1+ UA RBC 0-3 rbc/hpf 0 - 3 UA VOLUME FOR EXAM 12.0 mL (12mL STD) UA WBC 0-1 wbc/hpf 0 - 5 CBC W/DIFF - 07/05/16 17:18 BASOPHIL # 0.1 k/cumm 0.0-0.2 BASOPHIL % 1 % 0-1 EOSINOPHIL # 0.1 k/cumm 0.1-0.5 EOSINOPHIL % 1 % 2-4 GRANULOCYTE # 6.5 k/cumm 2.0-9.0 GRANULOCYTE % 72 % 50-75 LYMPHOCYTE # 1.8 k/cumm 1.0-4.0 LYMPHOCYTE % 19 % 20-30 MEAN CELL HGB 27.6 pg 27.0-33.0 MEAN CELL HGB CONCENTRATION 32.8 g/dL 32.0-37.0 MEAN CELL VOLUME 84.0 fl 80.0-100.0 MONOCYTE # 0.7 k/cumm 0.1-1.0 MONOCYTE % 7 % 4-6 RED BLOOD CELL 5.26 m/cumm 4.00-6.00 RED CELL DISTRIBUTION WIDTH 13.2 % 11.0- 15.6 WHITE BLOOD CELL 9.1 k/cumm 5.0-10.0 HEMOGLOBIN 14.5 gm/dL 14.0-18.0 HEMATOCRIT 44.2 % 40.0-54.0 PLATELET COUNT 254 k/cumm 150-400 METABOLIC PANEL, COMPREHN - 07/05/16 17:18 POTASSIUM 3.5 mmol/L 3.5-5.3 EST GFR (MDRD) > 60 mL/min > 59 ANION GAP 10 mmol/L 5-15 EST CrCl (CG) > 60 mL/min > 59 GLUCOSE 145 mg/dL 70-99 CALCIUM 8.6 mg/dL 8.5-10.1 BLOOD UREA NITROGEN 14 mg/dL 7-20 CREATININE 1.0 mg/dL 0.7-1.3 SODIUM 140 mmol/L 135-148 CHLORIDE 105 mmol/L 98-110 AST/SGOT 21 Units/L 10-37 ALT/SGPT 30 Units/L < 66 CARBON DIOXIDE 25 mmol/L 21-32 TOTAL PROTEIN 7.1 gm/dL 6.4-8.2 ALBUMIN 3.3 gm/dL 3.4-5.0 BILI TOTAL 0.8 mg/dL 0.0-1.0 ALKALINE PHOSPHATASE TOTAL 74 IU/L 45- 117 LIPASE - 07/05/16 17:18 LIPASE 114 Units/L 73-393 Encounters ACCT No. Visit Date/Time Discharge Status Pt. Type Provider Facility Loc./Unit Complaint [id number] 07/19/2013 02:39:00 2013 04:03:00 DIS Emergency [facility] ESCAMILLA, [facility]
--- OUTSIDE RECORDS SUMMARY | 2016-07-21 00:54 | XMS REPORT | Continuity Of Care Document ---
Author Author [facility] Organization [facility] Address [address] [place] [address] Phone Care Team Providers Care Storage Engineer Name Role Phone UNASSIGNED, PHYSICIAN Unavailable Unavailable Arti SERRANO MD AT Results Results No results recorded. Allergies and Adverse Reactions Allergies and Adverse Reactions Patient Unit Number: [id number] Agent Type Reaction Severity Status NSAIDS (NON-STEROIDAL ANTI-INFLAMMA Drug Allergy Unknown Unknown Active TRAMADOL Drug Allergy Unknown Unknown Active KETOROLAC Drug Allergy Unknown Unknown Active Problem List Problem List No problem list recorded. Plan of Care Plan Of Care Visit/Account #[id number] (June 21, 2016 2:25am - June 21, 2016 3:05am) Patient Instructions Rest, ice or heat to area for 20 minutes at a time at least twice a day. Take tylenol over the counter as directed for additional pain control. Return if symptoms worsen, if new symptoms develop, or for any other concerns. Vital Signs Vital Signs Visit/Account #[id number] (June 21, 2016 2:25am - June 21, 2016 3:05am) Sign First Result Last Result Code(s) Temperature in Fahrenheit Temperature (Fahrenheit): 98.3 [degF] On June 21, 2016 2:22am Temperature (Fahrenheit): 98.4 [degF] On June 21, 2016 3:04am 8310-5 Body Temperature Weight in Kilograms Weight (Kilograms): 117.4000 kg On June 21, 2016 2:22am 3141-9 Weight Measured Functional Status Functional and Cognitive Status No Functional Status Data Medications Inpatient/Ordered Medications - Medications administered during hospital visit Visit/Account #[id number] (June 21, 2016 2:25am - June 21, 2016 3:05am) Medication Route Sig/Schedule Precondition/Indication Comments/Instructions Codes SOLU-Medrol INJ(MethylPREDNISolone SOD SUCC) 125 MG/2 ML INJECTION Dose: 2 ML INTRAMUSC NOW Methylprednisolone 125 MG Injection [Solu-Medrol] (RxNorm): 5047966 SOLU-Medrol INJ (MethylPREDNISolone SOD SUCC) NDC: 17931527190 Discharge Medications - Medications that patient should continue to take. Review with physician Visit/Account #[id number] (June 21, 2016 2:25am - June 21, 2016 3:05am) Medication Route Sig/Schedule Precondition/Indication Comments/Instructions Codes Naproxen(NAPROXEN) 500 MG TAB Dose: 500 MG ORAL TWICE A DAY Naproxen (NAPROXEN) NDC: 43303783816 History Of Encounters Encounters Visit/Account #[id number] (June 21, 2016 2:25am - June 21, 2016 3:05am) Account Status Physican Of Record Reason For Visit Visit Diagnosis Start Date/Time Stop Date/Time ER YAYA SERRANO MD RIGHT SHOULDER PAIN Not Available Jun 21, 2016 2:25am Jun 21, 2016 3:05am History of Procedures Procedure List No procedures recorded. Discharge Instructions Discharge Instructions Visit/Account #[id number] (June 21, 2016 2:25am - June 21, 2016 3:05am) DISCHARGE INSTRUCTIONS Physician Documentation Social History Social History No Social History Data. Immunizations Immunizations Patient Unit Number: [id number] Immunizations No immunizations recorded.
--- OUTSIDE RECORDS SUMMARY | 2016-07-21 00:55 | XMS REPORT | Continuity of Care Document ---
Author Author [facility] Organization [facility] Address Unknown Phone Unavailable Support Name Relationship Address Phone DANIEL DYE MD Caregiver [address] [place] [address] [place] [address] Unavailable JONATAN PEREZ Next Of Kin [address] [place] [address] Insurance Providers Guarantor Rito Perez Address [address] [place] [address] Email DENIED 16 Payer Self Pay Subscriber's Name Marcio Perezmala Head Relationship 18 Self Chief Complaint and Reason for Visit Chief Complaint Toothache Reason for Visit [id number] Problems Past Problems Medical Problem Onset Date Pain, dental Unknown Medications Current Home Medications Medication Dose Units Route Directions Days Qty Instructions Start Date Hydrocodone/Acetaminophen ([place] 5-325 Tablet) 5-325 Tablet 1 Tab Oral Every 6 Hours as needed for Pain 15 Tablet 04/21/16 Lisinopril 20 Mg Tablet 20 Mg Oral Daily 04/21/16 Naproxen (Naprosyn) 500 Mg Tablet 1 Tab Oral Twice A Day 20 Tablet 04/21/16 Penicillin V Potassium 250 Mg Tablet 1 Tab Oral Three Times A Day 30 Tablet 04/21/16 Social History Social History Problem Response Recorded Date/Time Onset Date Status Hx Alcohol Use No 04/21/2016 3:55pm Not Applicable Not Applicable Query Response Start Date Stop Date Smoking Status Former smoker Hospital Discharge Instructions No hospital discharge instructions. Plan of Care Discharge Date 04/21/16 4:48pm Disposition 01 DISCHARGED HOME, SELF-CARE Condition at Discharge Stable Instructions/Education Provided ED Dental Follow-up Dental Caries (GEN) Prescriptions See Medication Section Additional Instructions/Education Call your dentist office or one listed here for an appointment next week. Use the Naproxen and [place] as needed for pain. Take the Pen VK as prescribed for infection prevention. Care Plan and Goals Physician Care Plan Problem:Dental Pain Goal: Follow up with primary care provider Instructions: Take medications and follow care plan as discussed/written Functional Status No functional status results. Allergies, Adverse Reactions, Alerts Allergen Type Severity Reaction Status Last Updated Tramadol Allergy Mild HIVES AND NAUSEA Active 04/21/16 Immunizations No immunization records. Vital Signs Acute Vital Signs Vital Response Date/Time Temperature (Fahrenheit) 98.7 deg F (96.8 - 99.1) 04/21/2016 3:45pm Temperature (Calculated Celsius) 37.66391 degrees C (36.0 - 37.3) 04/21/2016 3:45pm Pulse Rate (adult) 76 bpm (60 - 100) 04/21/2016 4:48pm Respiratory Rate 18 breaths/min (10 - 20) 04/21/2016 4:48pm O2 Sat by Pulse Oximetry 97 % (90 - 100) 04/21/2016 4:48pm Blood Pressure 207/122 mm Hg 04/21/2016 4:48pm Height (Feet) 5 feet 04/21/2016 3:45pm Height (Inches) 5.00 inches 04/21/2016 3:45pm Weight (Kilograms) 118.500 kg 04/21/2016 3:45pm Body Mass Index (BMI) 43.0 04/21/2016 3:45pm Results No known relevant diagnostic tests, laboratory data and/or discharge summary. Procedures No known history of procedures. Encounters Encounter Location Arrival/Admit Date Discharge/Depart Date Attending Provider Departed Emergency Room [facility] 04/21/16 3:42pm 04/21/16 4: 48pm DANIEL DYE MD Recent Diagnosis
[2016-07-21] MEDS ORDERED: HYDR-4246 PO (01:15)
[2016-07-21] MEDS ORDERED: CLINDAMYCIN 300 MG CAPSULE PO ONE (01:15)
[2016-07-21] MEDS ORDERED: CLIN-89 PO (01:15)
--- NOTE | 2016-07-21 01:16 | ERPDOC ---
Departure Disposition Decision Date: Jul 21, 2016 Disposition Decision Time: 01:14 Disposition: 01 DISCHARGED HOME, SELF-CARE Impression Impression Impression: Primary Impression: Pain, dental Severity: Mild Condition: Improved Seen By: Physician only Referrals: [facility] 2 Days Patient Instructions: Dental Caries (ED), Toothache (ED), ED Dental Follow-up Problems/Meds/Labs Reviewed?: Yes Medications reviewed and manag: Yes Follow up care ordered?: Yes Mental Status: Alert, Oriented HPI - General Medical General Chief Complaint: Toothache Stated Complaint: JAW PAIN Time Seen by Provider: 01:07 Source: patient Exam Limitations: no limitations HPI - General Medical Initial Comments 40-year-old male presents to the emergency department with a chief complaint of dental pain. Patient noted onset of symptoms earlier today. Patient describes pain in the right lower jaw without radiation. Pain is moderate in nature. Patient notes that the pain increases with chewing and improves with rest and positioning. Patient denies any other complaints or associated symptoms. Patient has a history of poor dentition with similar symptoms in the past. He was at home when the symptoms began. Symptoms have been persistent in nature since onset. Occurred At: home Onset: Constant Allergies: Coded Allergies: tramadol (Verified Allergy, Mild, HIVES AND NAUSEA, 07/21/16) Past History Past Medical History Metabolic: hypertension Surgical History Denies Surgeries Family History Family History: Negative Social History Smoking Status: Never smoker Substance Use Type: does not use Alcohol Intake: none Review of Systems Constitutional Constitutional: DENIES: chills, fever Eyes General: DENIES: erythema, exudate Lids/Accessories: DENIES: erythema, swelling Vision: DENIES: acuity, blurring ENMT Ears: DENIES: drainage, erythema Hearing: DENIES: hearing loss Balance: DENIES: ataxia, falling to one side Sinuses: DENIES: congestion, pain Nose: DENIES: nosebleeds, pain Mouth/Throat: DENIES: painful swallowing, sore throat Teeth: DENIES: pain Jaw: DENIES: pain Cardiovascular Cardiac: DENIES: chest pain, dyspnea on exertion Rhythm/Rate: DENIES: irregular beat, palpitations Vascular: DENIES: pedal edema, unilateral swelling Pulmonary Respiratory: DENIES: cough, pleuritic chest pain, sputum GI Upper Abdomen: DENIES: nausea, pain, vomiting Lower Abdomen: DENIES: diarrhea, pain General: DENIES: dysuria, frequency Musculoskeletal General: DENIES: joint pain, tenderness Integumentary Skin: DENIES: itching, rash Neurological General: DENIES: headache, numbness, weakness Psychiatric Psychiatric: DENIES: emotional instability, suicidal ideation/attempt Endocrine Endocrine: DENIES: polydipsia, polyphagia Hematologic/Lymphatic Hematologic/Lymphatic: DENIES: frequent nosebleeds, lymphadenopathy Allergic/Immunological Allergic/Immunoligical: DENIES: allergic reactions, hives Physical Exam General General Nourishment: well nourished, well developed, appears stated age, no acute distress, adult Vitals and Pain First Documented Vital Signs Date Time Temp Pulse Resp B/P Pulse Ox O2 Delivery O2 Flow Rate FiO2 07/21/16 00:53 97.8 114 16 158/97 97 Room Air Weight: Kilograms: 117.300 Height (feet): 5 Height (inches): 0 Triage Pain Scale: Normal Exams: Head: Normocephalic w/o trauma Eyes: Pupils are PERRLA w/ EOMI, No scleral icterus, irritation, or foreign bodies noted ENMT: No facial trauma, nasal exudates, pharyngeal erythema, or exudates are noted Neck: Full range of motion, without adenopathy, JVD, bruits or thyromegaly Chest/Resp: Clear all henry, with good airflow, and symmetry bilaterally CV: Regular rate and rhythm, without murmur or gallop, Pulses 2+ all extremities, capillary refill, <2 seconds all ext., no pedal edema noted Abdomen: Bowel sounds positive, soft, non-tender, non-distended, no hepatosplenomegaly, masses or bruits noted Lymphatic: No lymphadenopathy, or lymphedema noted Musculoskeletal: No tenderness, or deformity noted, good range of motion, all extremities Integumentary: No rashes, hives, or bruising noted, hair and nails, without abnormality Neurologic: Patient is alert, and oriented, cranial nerves, motor/sensory/ cerebellar, exams w/o gross deficits, to observation Psychiatric: Patient exhibits, appropriate attention, emotion and affect ENMT (brief) Comments Oral - tooth #29 and 30 are tender to percussion. No sign of abscess. No facial swelling or cellulitis. No elevation of tongue. Voice is normal. Handling secretions without difficulty. No pharyngeal erythema. No tonsillar exudate. Uvula is midline. Differential Diagnoses Considering: Other (dental pain/dental trauma/dental abscess/toothache) Progress Results/Orders Orders Procedure Category Date Status Time Hydrocodone/Acetaminophen PHA 07/21/16 Complete (Chavies 7.5/325 01:15 Clindamycin (Cleocin) PHA 07/21/16 Complete 01:15 Medications Current ED Medications Acetaminophen/ Hydrocodone Bitart (Chavies 7.5/325) 1 tab O ONCE PO Last administered on 07/21/16 01:37; Start 07/21/16 at 01:15; Stop 07/21/16 at 01:16 ; Status DC Clindamycin HCl (Cleocin) 300 mg O ONCE PO Last administered on 07/21/16 01: 36; Start 07/21/16 at 01:15; Stop 07/21/16 at 01:16; Status DC Progress Progress Patient is given analgesic pain medication in the emergency department with improvement of symptoms. Patient is given clindamycin in the emergency department with improvement of symptoms. Patient is discharged home in improved condition. He is to follow up as instructed. Patient is to return to the emergency department if his condition worsens or changes in any manner. Patient is in agreement with the current plan of management. He is to follow up as instructed. Repeat HR taken by me: 100 bpm. ALEX BARCENAS DO Jul 21, 2016 01:16
--- NOTE | 2016-07-21 01:36 | NUR ---
MEDS PO MEDS GIVEN TO PT PT TAKES MEDS EASILY
--- NOTE | 2016-07-21 01:38 | NUR ---
INSTRUCTIONS DISMISSAL AND MEDICATION INSTRUCTIONS GIVEN TO PT 2 RX GIVEN FOR CLEOCIN AND NORCO 5 WITH INSTRUCTIONS FOR BOTH PT VERBALIZED UNDERSTANDING OF ALL
[2016-07-21 01:39] VITALS: BP 153/89; PULSE 102; RESP 16; TEMP 97.8; O2SAT 96
--- NOTE | 2016-07-21 01:39 | NUR ---
DISMISS PT DISMISSED AMBULATORY WITH WHO IS DRIVING
--- OUTSIDE RECORDS SUMMARY | 2016-07-21 01:54 | XMS REPORT | Continuity of Care Document ---
Author Author [facility] Organization [facility] Address Unknown Phone Unavailable Allergies [...] IntraMuscular 60 mg 60 mg, IntraMuscular, Once HYDROcodone-acetaminophen(Everett 7.5 mg-325 mg oral tablet) 1 tabs [...] mg 2 tabs, Oral, Daily, 20 tabs HYDROcodone-acetaminophen(Everett 7.5 mg-325 mg oral tablet) 1 tabs [...] for 14 days, 56 tabs, 0 Refill(s) HYDROcodone-acetaminophen(Everett 7.5 mg-325 mg oral tablet) 1 tabs 10/16/2015 10/16/2015 Oral 1 tabs, Oral, Once cloNIDine(cloNIDine) 2 tabs 10/16/2015 10/16/2015 Oral 0.2 mg 0.2 mg=2 tabs, Oral, Once HYDROcodone-acetaminophen(Everett 5 mg-325 mg oral tablet) 1 tabs [...] SUP/Jesus Jim MD., 14 tabs, 0 Refill(s) HYDROcodone-acetaminophen(Everett 5 mg-325 mg oral tablet) 1 tabs [...] TID, PRN: Pain, 15 tabs, 0 Refill(s) HYDROcodone-acetaminophen(Everett 5 mg-325 mg oral tablet) 1 tabs [...] Attending Type Code Diagnosis Diagnosed By 07/19/2013 eDl Sands MD Final 338.19 ACUTE PAIN NEC [...] unspecified 05/03/2016 Antwon Emery Final Z79.899 Other rn long term care (current) drug therapy 05/11/2016 Felipe Jacob Final [...] Hematuria, unspecified 06/04/2016 Fouzia Og Final Z79.52 custodial (current) use of systemic steroids 06/04/2016 Fouzia Og Final Z79.899 Other rn long term care (current) drug therapy 06/22/2016 Ramirez Mark Final I10 Essential (primary) hypertension 06/22/2016 Ramirez Mark Reason R10.11 Right upper quadrant pain 07/13/2016 Gutierrez Maged Final I10 Essential (primary) hypertension 07/13/2016 Gutierrez Maged Reason R10.11 Right upper quadrant pain 07/13/2016 Gutierrez Maged Final Z79.899 Other rn long term care (current) drug therapy Procedures Results Test Result [...] Status Pt. Type Provider Facility Loc./Unit Complaint [id number] 07/19/2013 02:39:00 2013 04:03:00 DIS Emergency Wicho ESCAMILLA, [facility]
== END 2016-07-21 01:39 | disposition home or self-care (01) ==
LOC: ED 00:48
DX: K08.89 Other specified disorders of teeth and supporting structures (principal)

== ENCOUNTER 2016-08-14 23:29 | Emergency (ER) | payer SELFPAY ==
[~2016-08-14] VITALS: Ht 165.1 cm; Wt 102.4 kg
[~2016-08-14 23:29] MED LIST changes: -HYDR-4246 PO; -NAPR500T PO; -PENI250T2 PO
--- OUTSIDE RECORDS SUMMARY | 2016-08-14 23:35 | XMS REPORT ---
Author Author [facility] Organization [facility] Address [address] [place] [address] Phone [phone] Summary purpose CCDA Sent to [facility] Chief Complaint and Reason for Visit Admit [...] diagnostic tests and/or laboratory data RESULTS CBC [id number]:10:00 Result Normal Range Units WBC 10.34 5.8-10.8 x103/mm3 Result Amended on 2016-06-21 at 08:31:49. Previous status was FR. Neutrophil % HC 92.3 50-70 % Result Amended on 2016-06-21 at 08:31:49. Previous status was FR. REP/JUDIE BY [facility] 06/21/16 CALLED TO COLE @ [facility] 06/21/16 [facility] Lymph % L 6.3 20-50 % Result Amended on 2016-06-21 at 08:31:49. Previous status was FR. Screven % 1.1 1.0-9.0 % Result Amended on [...] 2016-06-21 at 08:31:49. Previous status was FR. Screven # 0.11 0.0-0.8 x103/mm3 Result Amended on [...] 08:31:50. Previous status was FR. Manual Differential :10:00 Result Normal Range Units Seg 91.0 Lymph 7.0 Bands 1.0 Immature Cell 1.0 Chemistry Group [id number]: Result Normal Range Units Sodium 140 134-145 [...] mg/dl A/G Ratio 1.1 Ratio Coagulation Group [id number]:00 Result Normal Range Units Protime 9.9 9.5-12.3 Sec INR 0.9 Special Chemistry Group :10:00 Result Normal Range Units Troponin I < 0.06 ng/ml NEGATIVE - 0.06-0.30 ng/ml INCONCLUSIVE - 0.31-0.64 ng/ml; Suggest Repeating in 2-4 hours POSITIVE - >0.64 ng/ml; Probable AMI History of procedures Procedure Code Code Type Description Date Performed Performing Physician 15226 CPT-4 EMERGENCY DEPT VISIT 06-21-2016 [facility] 63839 CPT-4 ELECTROCARDIOGRAM, TRACING 06-21-2016 [facility] 42331 CPT-4 COMPLETE CBC, AUTOMATED 06-21-2016 [facility] 75704 CPT-4 PROTHROMBIN TIME 06-21-2016 [facility] 97016 CPT-4 ASSAY OF TROPONIN, QUANT 06-21-2016 [facility] 19720 CPT-4 COMPREHEN METABOLIC PANEL 06-21-2016 [facility] Functional status Cognitive Status Finding Observation Time Level of Consciousne Alert [id number]:15 Oriented to Person Yes [id number]:[address] Yes [id number]:15 Oriented to Time Yes [id number]:15 Vital signs Type Value Date Respirations 16 [id number]:42 Pulse 86 79-30-660825:42 O2 Saturation 96% 28-18-020146:42 Systolic Blood Press 186mm/HG 91-40-382947:42 Diastolic Blood Pres 123mm/HG 67-75-899750:42 Temperature (Fahr) 98.4Degrees 23-21-569338:48 Height 65in 31-33-765956:33 Weight 265LB 92-74-275341:33 Social history Type Value Smoking Status NEVER SMOKER Treatment Plan No treatment plan text is available for this visit. Hospital discharge instructions No discharge instruction text is available for this visit.
--- OUTSIDE RECORDS SUMMARY | 2016-08-14 23:36 | XMS REPORT | Continuity of Care Document ---
Author Author [facility] Organization [facility] Address Unknown Phone Unavailable Support Name Relationship Address Phone ALEX BARCENAS Ashwin DO Caregiver [address] [address] Unavailable ANAARIAKEILA Next Of Kin [address] [place], [place] [phone] Insurance Providers Guarantor Rito Perez Address [address] [place] [address] Email DENIED 07-21-16 Payer Self Pay Subscriber's Name Marcio Perezmala Head Relationship 18 Self Chief Complaint and Reason for Visit Chief Complaint Toothache Reason for Visit [id number] Problems Past Problems Medical Problem Onset Date Pain, dental Unknown Pain, dental Unknown Medications Current Home Medications Medication Dose Units Route Directions Days Qty Instructions Start Date Lisinopril 20 Mg Tablet 20 Mg Oral Daily 04/21/16 Social History Social History Problem Response Recorded Date/Time Onset Date Status Chewing Tobacco Status No 07/21/2016 1:02am Not Applicable Not Applicable Hx Substance Use No 07/21/2016 1:02am Not Applicable Not Applicable Hx Alcohol Use No 07/21/2016 1:02am Not Applicable Not Applicable Query Response Start Date Stop Date Smoking Status Never smoker Hospital Discharge Instructions No hospital discharge instructions. Plan of Care Discharge Date 07/21/16 1:39am Disposition 01 DISCHARGED HOME, SELF-CARE Condition at Discharge Improved Instructions/Education Provided ED Dental Follow-up Dental Caries (ED) Toothache (ED) Prescriptions See Medication Section Referrals [facility] Order Date: 2 Days Care Plan and Goals Physician Care Plan Problem: Dental Pain Goal: Follow up with primary care provider Instructions: Take medications and follow care plan as discussed/written Functional Status No functional status results. Allergies, Adverse Reactions, Alerts Allergen Type Severity Reaction Status Last Updated Penicillin Allergy Unknown Active 07/21/16 Tramadol Allergy Mild HIVES AND NAUSEA Active 07/21/16 Immunizations No immunization records. Vital Signs Acute Vital Signs Vital Response Date/Time Temperature (Fahrenheit) 97.8 deg F (96.8 - 99.1) 07/21/2016 1:39am Temperature (Calculated Celsius) 36.30989 degrees C (36.0 - 37.3) 07/21/2016 1:39am Pulse Rate (adult) 102 bpm (60 - 100) 07/21/2016 1:39am Respiratory Rate 16 breaths/min (10 - 20) 07/21/2016 1:39am O2 Sat by Pulse Oximetry 96 % (90 - 100) 07/21/2016 1:39am Blood Pressure 153/89 mm Hg 07/21/2016 1:39am Height (Feet) 5 feet 07/21/2016 12:53am Height (Inches) 0 inches 07/21/2016 12:53am Weight (Kilograms) 117.300 kg 07/21/2016 12:53am Body Mass Index (BMI) 50.0 07/21/2016 12:53am Results No known relevant diagnostic tests, laboratory data and/or discharge summary. Procedures No known history of procedures. Encounters Encounter Location Arrival/Admit Date Discharge/Depart Date Attending Provider Departed Emergency Room [facility] 07/21/16 12:48am 07/21/16 1: 39am ALEX BARCENAS DO Recent Diagnosis
--- OUTSIDE RECORDS SUMMARY | 2016-08-14 23:37 | XMS REPORT | Continuity of Care Document ---
Author Author [facility] Organization [facility] Address Unknown Phone Unavailable Allergies Active Description Code Type Severity Reaction Onset Reported/Identified Relationship to Patient Clinical Status Yes tramadol 4180 Drug Allergy N/A N/A Confirmed or Verified Yes No Allergy Information Drug Allergy N/A [...] VOMIT, HIVES AND STUFF 03/13/2016 Yes tramadol 4180 Drug Allergy N/A Hives 06/21/2016 Medications Medication Packaging Start Date Stop Date [...] IntraMuscular 60 mg 60 mg, IntraMuscular, Once HYDROcodone-acetaminophen(Sunflower 7.5 mg-325 mg oral tablet) 1 tabs [...] mg 2 tabs, Oral, Daily, 20 tabs HYDROcodone-acetaminophen(Sunflower 7.5 mg-325 mg oral tablet) 1 tabs [...] for 14 days, 56 tabs, 0 Refill(s) HYDROcodone-acetaminophen(Sunflower 7.5 mg-325 mg oral tablet) 1 tabs 10/16/2015 10/16/2015 Oral 1 tabs, Oral, Once cloNIDine(cloNIDine) 2 tabs 10/16/2015 10/16/2015 Oral 0.2 mg 0.2 mg=2 tabs, Oral, Once HYDROcodone-acetaminophen(Sunflower 5 mg-325 mg oral tablet) 1 tabs [...] mg=1 tabs, Oral, q12hr, for 7 days, SHARMIN/Jesus Jim MD., 14 tabs, 0 Refill(s) HYDROcodone-acetaminophen(Sunflower 5 mg-325 mg oral tablet) 1 tabs [...] TID, PRN: Pain, 15 tabs, 0 Refill(s) HYDROcodone-acetaminophen(Sunflower 5 mg-325 mg oral tablet) 1 tabs [...] Moderate ( 4-6), 6 tabs, 0 Refill(s) zolpidem(Ambien) 1 tabs 07/31/2016 07/31/2016 Oral 5 mg 5 mg=1 tabs, Oral, Once, PRN: Sleep acetaminophen-diphenhydramine(Percogesic Extra Strength 500 mg-12.5 mg oral tablet) 1 tabs 08/09/2016 08/12/2016 Oral 1 tabs, Oral, q4hr, for 3 days, saleem wild md, PRN: Pain Moderate (4-6), 12 tabs, 0 Refill(s) Problems Date Dx Coded [...] Silva Final E87.6 Hypokalemia 05/11/2015 Pedro Silva Final I10 Essential (primary) hypertension 05/11/2015 Pedro Silva Reason M25.511 Pain in right shoulder 09/08/2015 [...] Mark Reason M54.5 Low back pain 03/14/2016 Venice,Susan Reason M25.512 Pain in left shoulder 03/14/2016 Venice,Susan Final M75.22 Bicipital tendinitis, left shoulder 04/05/2016 [...] unspecified 05/03/2016 Antwon Emery Final Z79.899 Other correction (current) drug therapy 05/11/2016 Felipe Jacob Final [...] steroids 06/04/2016 Fouzia Og Final Z79.899 Other correction (current) drug therapy 06/22/2016 Ramirez Mark Final I10 Essential (primary) hypertension 06/22/2016 Ramirez Mark Reason R10.11 Right upper quadrant pain 07/13/2016 Gutierrez Maged Final I10 Essential (primary) hypertension 07/13/2016 Gutierrez Maged Reason R10.11 Right upper quadrant pain 07/13/2016 Gutierrez Maged Final Z79.899 Other technician terminal and repeater (current) drug therapy 08/03/2016 Ramirez Mark Reason G47.00 Insomnia, unspecified 08/13/2016 Felipe Jacob Final I10 Essential (primary) hypertension 08/13/2016 Felipe Jacob Final K02.9 Dental caries, unspecified 08/13/2016 Felipe Jacob Reason K08.89 Other specified disorders of teeth and supporting structures Procedures Results Test Result Range URINALYSIS, ROUTINE [...] % 40.0-54.0 PLATELET COUNT 261 k/cumm 150-400 CBC - 06/21/16 08:29 Eos # 0.01 x10^3 0-0.5 Eos % 0.1 % 0-4 HCT 47.3 % 42.0-52.0 HGB 16.1 G/DL 14.0-18.0 Immature Cell 1.0 Lymph 7.0 Lymph # 0.65 x10^3 1.0-4.0 Lymph % 6.3 % 20-50 MCH 28.5 PG 27.0-31.0 MCHC 34.0 G/DL 32.0-36.0 MCV 83.9 FL 80-94 Hooker # 0.11 x10^3 0.0-0.8 Hooker % 1.1 % 1.0-9.0 MPV 8.5 FL 6.0-10.0 Platelet 254 x10^3 150-400 RBC 5.64 x10^3 4.60-6.20 RDW 13.6 % 12-15 Seg 91.0 WBC 10.34 x10^3 5.8-10.8 Bands 1.0 Baso # 0.02 x10^3 0-0.2 Baso % 0.2 % 0-2 Neut % 92.3 % 50-70 Neut # 9.55 x10^3 3.0-7.0 Comprehensive Metabolic Panel - 06/21/16 07:35 Sodium 140 MMOLL 134-145 Potassium 4.0 MMOLL 3.6-5.0 Chloride 106 MMOLL 98-107 CO2 22 MMOLL 22-30 Glucose 153 MG/DL 75-110 BUN 19 MG/DL 9-20 Creatinine .76 MG/DL 0.8-1.7 Calcium 9.1 MG/DL 8.4-10.2 T Bili 1.3 MG/DL 0.2-1.3 T. Protein 8.3 G/DL 6.3-8.2 A/G Ratio 1.1 RATIO Albumin 4.3 G/DL 3.5-5.0 Alk Phos 81 U/L 38-126 ALT 25 U/L 11-66 AST 27 U/L 14-36 EGFR 112 MLMIN Protime - 06/21/16 07:45 INR 0.9 Protime 9.9 SEC 9.5-12.3 Troponin I - 06/21/16 07:48 Troponin I < 0.06 NG/ML GONORRHOEA DNA BY PCR - CHLAMYDIA DNA [...] - 07/05/16 17:18 LIPASE 114 Units/L 73-393 URINALYSIS, ROUTINE - 08/05/16 20:14 UA LEUKOCYTE ESTERASE DIPSTICK NEGATIVE NEGATIVE UA NITRITE DIPSTICK NEGATIVE NEGATIVE UA PROTEIN DIPSTICK 1+ NEGATIVE UA GLUCOSE DIPSTICK NEGATIVE NEGATIVE UA KETONE DIPSTICK NEGATIVE NEGATIVE UA UROBILINOGEN DIPSTICK NORMAL NORMAL UA BILIRUBIN DIPSTICK NEGATIVE NEGATIVE UA BLOOD DIPSTICK 1+ NEGATIVE UA SPECIFIC GRAVITY 1.020 1.015-1.025 UR PH 7.0 5.0-7.0 UA MICROSCOPIC - 08/05/16 20:14 UA AMORPHOUS SEDIMENT 1+ UA EPITHELIAL CELLS 1+ epi/hpf 0 - 1+ UA MUCUS 1+ NEG TO 1+ UA RBC 5-10 rbc/hpf 0 - 3 UA VOLUME FOR EXAM 12.0 mL (12mL STD) UA WBC 0-1 wbc/hpf 0 - 5 CBC - 08/05/16 20:20 MEAN CELL HGB 28.3 pg 27.0-33.0 MEAN CELL HGB CONCENTRATION 33.6 g/dL 32.0-37.0 MEAN CELL VOLUME 84.1 fl 80.0-100.0 RED BLOOD CELL 5.41 m/cumm 4.00-6.00 RED CELL DISTRIBUTION WIDTH 13.6 % 11.0- 15.6 WHITE BLOOD CELL 7.6 k/cumm 5.0-10.0 HEMOGLOBIN 15.3 gm/dL 14.0-18.0 HEMATOCRIT 45.5 % 40.0-54.0 PLATELET COUNT 265 k/cumm 150-400 METABOLIC PANEL, COMPREHN - 08/05/16 20:20 POTASSIUM 3.5 mmol/L 3.5-5.3 EST GFR (MDRD) > 60 mL/min > 59 ANION GAP 12 mmol/L 5-15 EST CrCl (CG) > 60 mL/min > 59 GLUCOSE 115 mg/dL 70-99 CALCIUM 8.8 mg/dL 8.5-10.1 BLOOD UREA NITROGEN 14 mg/dL 7-20 CREATININE 1.2 mg/dL 0.7-1.3 SODIUM 142 mmol/L 135-148 CHLORIDE 106 mmol/L 98-110 AST/SGOT 24 Units/L 10-37 ALT/SGPT 36 Units/L < 66 CARBON DIOXIDE 24 mmol/L 21-32 TOTAL PROTEIN 8.0 gm/dL 6.4-8.2 ALBUMIN 3.7 gm/dL 3.4-5.0 BILI TOTAL 0.6 mg/dL 0.0-1.0 ALKALINE PHOSPHATASE TOTAL 71 IU/L 45- 117 LIPASE - 08/05/16 20:20 LIPASE 123 Units/L 73-393 TROPONIN I BEDSIDE - 08/09/16 23:41 METHOD Bedside TROPONIN I < 0.04 ng/mL < 0.11 CBC W/DIFF - 08/09/16 23:49 BASOPHIL # 0.1 k/cumm 0.0-0.2 BASOPHIL % 1 % 0-1 EOSINOPHIL # 0.1 k/cumm 0.1-0.5 EOSINOPHIL % 1 % 2-4 GRANULOCYTE # 6.6 k/cumm 2.0-9.0 GRANULOCYTE % 66 % 50-75 LYMPHOCYTE # 2.5 k/cumm 1.0-4.0 LYMPHOCYTE % 25 % 20-30 MEAN CELL HGB 28.6 pg 27.0-33.0 MEAN CELL HGB CONCENTRATION 34.5 g/dL 32.0-37.0 MEAN CELL VOLUME 82.8 fl 80.0-100.0 MONOCYTE # 0.7 k/cumm 0.1-1.0 MONOCYTE % 7 % 4-6 RED BLOOD CELL 5.00 m/cumm 4.00-6.00 RED CELL DISTRIBUTION WIDTH 13.2 % 11.0- 15.6 WHITE BLOOD CELL 10.1 k/cumm 5.0-10.0 HEMOGLOBIN 14.3 gm/dL 14.0-18.0 HEMATOCRIT 41.4 % 40.0-54.0 PLATELET COUNT 290 k/cumm 150-400 METABOLIC PANEL, BASIC - 08/09/16 23:49 POTASSIUM 3.4 mmol/L 3.5-5.3 EST GFR (MDRD) > 60 mL/min > 59 ANION GAP 10 mmol/L 5-15 EST CrCl (CG) > 60 mL/min > 59 GLUCOSE 98 mg/dL 70-99 CALCIUM 8.7 mg/dL 8.5-10.1 BLOOD UREA NITROGEN 12 mg/dL 7-20 CREATININE 1.1 mg/dL 0.7-1.3 SODIUM 139 mmol/L 135-148 CHLORIDE 104 mmol/L 98-110 CARBON DIOXIDE 25 mmol/L 21-32 Encounters ACCT No. Visit Date/Time Discharge Status Pt. Type Provider Facility Loc./Unit Complaint [id number] 07/19/2013 02:39:00 2013 04:03:00 DIS Emergency Wicho ESCAMILLA, [facility] [address] [facility]
[2016-08-15 00:01] VITALS: Ht 165.1 cm; Wt 102.4 kg
[2016-08-15] MEDS ORDERED: CEPHALEXIN 500 MG CAPSULE PO ONE (01:30)
[2016-08-15] MEDS ORDERED: HYDROCODONE/APAP 5/325 (PrePack) SENT HOME ONE (01:30)
--- NOTE | 2016-08-15 01:33 | ERPDOC ---
Departure Disposition Decision Date: August 15, 2016 Disposition Decision Time: :33 Disposition: 01 DISCHARGED HOME, SELF-CARE Impression Impression Impression: Primary Impression: Drug-seeking behavior Additional Impressions: Pain, dental Pain due to dental caries Severity: Moderate Condition: Improved Seen By: Physician only Patient Instructions: Dental Caries (ED) Problems/Meds/Labs Reviewed?: Yes Medications reviewed and manag: Yes Additional Instructions: Take Keflex 500 mg 3 times daily for 10 days [place] 5 mg one tablet up to 4 times daily as needed for severe pain Into any ibuprofen 800 mg 4 times daily for baseline pain control Establish care with a primary care physician and a dentist that can see on an ongoing basis, as we will no longer be able to provide you pain medications to the emergency department Follow up care ordered?: Yes Mental Status: Alert, Oriented Scripts Hydrocodone/Acetaminophen ([place] 5-325 Tablet) 5-325 Tablet 1 TAB PO QID Y for PAIN, #15 Prov: KIERRA MCFARLAND MD 08/15/16 Cephalexin (Keflex) 500 Mg Capsule 500 MG PO TID, #30 CAP Prov: KIERRA MCFARLAND MD 08/15/16 HPI General Chief Complaint: Toothache Stated Complaint: BROKE A TOOTH Time Seen by Provider: 01:28 Source: patient Exam Limitations: no limitations HPI Dental Initial Comments Patient presents with "broken tooth" that happened 2 days ago. She has been seen by multiple ERs, and multiple cities in the area, at least 2-3 times every month for dental pain and back pain. Patient was recently seen at [facility] for the same complaint, received a 3 day prescription for Revere, apparently has not followed up with any dentist. Patient states he does have a dentist, but is "hard to see him." Occurred At: home Onset: Rapid Severity: moderate Location: L upper Associated Symptoms: DENIES: cheek swelling, cough, dental trauma, diarrhea, drooling, dyspnea, facial swelling, fever, fractured tooth, gum laceration, gum swelling, headache, high pitched cry/voice, impacted tooth, loose tooth, nausea , retained foreign body, rhinorrhea, sinus drainage, sinus pain, trouble chewing , trouble swallowing, vomiting Allergies: Coded Allergies: tramadol (Verified Allergy, Mild, HIVES AND NAUSEA, 08/15/16) Penicillins (Verified Allergy, Unknown, 5/24/17) Past History Patient Medical History Problem List Updates: Frequent opioid prescription use Past Medical History Metabolic: hypertension ENMT: dental problems Surgical History Denies Surgeries Social History Substance Use Type: does not use Alcohol Intake: none Review of Systems Constitutional Constitutional: DENIES: appetite decrease, appetite increase, chills, dizziness , fever, weakness ENMT Ears: DENIES: pain Hearing: DENIES: hearing loss, tinnitus Balance: DENIES: vertigo Mouth/Throat: DENIES: change in swallowing, change in voice, hoarsness, painful swallowing, sore throat Teeth: chipped/cracked tooth, pain Cardiovascular Cardiac: DENIES: chest pain, dyspnea on exertion Rhythm/Rate: DENIES: irregular beat, palpitations, tachycardia Vascular: DENIES: pedal edema Pulmonary Respiratory: DENIES: cough, dyspnea, pleuritic chest pain GI Upper Abdomen: DENIES: dysphagia, heartburn/indigestion, nausea, pain, vomiting Lower Abdomen: DENIES: blood in stool, constipation, diarrhea, pain General: DENIES: burning, dysuria, frequency, pain, urgency Musculoskeletal General: DENIES: cramps, joint pain, joint swelling, pain, weakness Integumentary Skin: DENIES: rash, sores Neurological General: DENIES: headache, numbness, tingling, vertigo, weakness Exam General General Nourishment: well nourished, well developed, appears stated age, no acute distress General Body Habitus: well groomed Vital Signs: RN Vital Signs have been reviewed: Yes, Temperature: 98.5, Source : Oral, Heart Rate: 84, Respiratory Rate: 16, BP: 188/113, Pulse Oximetry: 96 Height (Feet): 5 Height (Inches): 5.00 [facility] Comments Patient has a globally horrible teeth, with multiple teeth either missing or rotted down to the gumline. Over the area where the patient points out the newly "fractured" tooth, there is no tooth above the gumline, and severe degeneration and caries of the tooth below the gumline. Patient does have moderate tenderness over the tooth and gum, but this does not appear acute. Neurologic RN Documented GCS Eye Opening: Verbal: Motor: Total: Progress Progress Progress I discussed with the patient at length his use and abuse of ER services for this condition, instructed the patient that this would be the last time that [facility] will ever give him opioid prescriptions through the ER, and instructed the patient that he needs to establish a primary care physician and a dentist that can take care of these issues. Patient has chronic conditions, and he needs routine follow-up not emergent care 3 times monthly for narcotic prescriptions. NO NARCOTICS THROUGH ER KIERRA MCFARLAND MD August 15, 2016 01:32
[2016-08-15] MEDS ORDERED: HYDR-4246 PO (01:35)
[2016-08-15] MEDS ORDERED: CEPH-583 PO (01:35)
[2016-08-15 01:53] VITALS: BP 188/113; PULSE 84; RESP 16; TEMP 98.5; O2SAT 96
--- OUTSIDE RECORDS SUMMARY | 2016-08-15 02:08 | XMS REPORT | Continuity of Care Document ---
Author Author [facility] Organization [facility] Address Unknown Phone Unavailable Allergies Active [...] IntraMuscular 60 mg 60 mg, IntraMuscular, Once HYDROcodone-acetaminophen([place] 7.5 mg-325 mg oral tablet) 1 tabs [...] mg 2 tabs, Oral, Daily, 20 tabs HYDROcodone-acetaminophen([place] 7.5 mg-325 mg oral tablet) 1 tabs [...] for 14 days, 56 tabs, 0 Refill(s) HYDROcodone-acetaminophen([place] 7.5 mg-325 mg oral tablet) 1 tabs 10/16/2015 10/16/2015 Oral 1 tabs, Oral, Once cloNIDine(cloNIDine) 2 tabs 10/16/2015 10/16/2015 Oral 0.2 mg 0.2 mg=2 tabs, Oral, Once HYDROcodone-acetaminophen([place] 5 mg-325 mg oral tablet) 1 tabs [...] SHARMIN/Jesus Jim MD., 14 tabs, 0 Refill(s) HYDROcodone-acetaminophen([place] 5 mg-325 mg oral tablet) 1 tabs [...] TID, PRN: Pain, 15 tabs, 0 Refill(s) HYDROcodone-acetaminophen([place] 5 mg-325 mg oral tablet) 1 tabs [...] Final I10 Essential (primary) hypertension 10/24/2015 Bertin Mean Final K02.9 Dental caries, unspecified 10/24/2015 Bertin [...] Reason M25.512 Pain in left shoulder 03/14/2016 [place],Suasn Final M75.22 Bicipital tendinitis, left shoulder 04/05/2016 [...] unspecified 05/03/2016 Antwon Emery Final Z79.899 Other alf (current) drug therapy 05/11/2016 Felipe Jacob Final [...] stairs and steps, initial encounter 06/04/2016 Fouzia gO Final I10 Essential (primary) hypertension 06/04/2016 Fouzia Og Reason R10.31 Right lower quadrant pain 06/04/2016 Fouzia Og Final R31.9 Hematuria, unspecified 06/04/2016 Fouzia Og Final Z79.52 prison (current) use of systemic steroids 06/04/2016 Fouzia Og Final Z79.899 Other alf (current) drug therapy 06/22/2016 Ramirez Mark Final I10 Essential (primary) hypertension 06/22/2016 Ramirez Mark Reason R10.11 Right upper quadrant pain 07/13/2016 Gutierrez Maged Final I10 Essential (primary) hypertension 07/13/2016 Gutierrez Maged Reason R10.11 Right upper quadrant pain 07/13/2016 Gutierrez Maged Final Z79.899 Other terminal gauger (current) drug therapy 08/03/2016 Ramirez Mark Reason [...] 34.0 G/DL 32.0-36.0 MCV 83.9 FL 80-94 [place] # 0.11 x10^3 0.0-0.8 [place] % 1.1 % 1.0-9.0 MPV 8.5 FL [...] Status Pt. Type Provider Facility Loc./Unit Complaint [id number] 07/19/2013 02:39:00 2013 04:03:00 DIS Emergency W[facility]o ESCAMILLA, [facility] [address] FERM
== END 2016-08-15 01:53 | disposition home or self-care (01) ==
LOC: ED 23:29
DX: K02.9 Dental caries, unspecified (principal); Z76.5 Malingerer [conscious simulation]